=== PATIENT | female | born 1990 | race Two or more races ===

== ENCOUNTER → 2020-08-18 10:32 | Outpatient (BNVA) | payer OTHER, SELFPAY | PROVIDERS: PCP Internal Medicine; Referring Provider Internal Medicine; Visit Provider Nurse Practitioner | DX: Z76.89 Persons encountering health services in other specified circumstances (principal) ==

== ENCOUNTER 2020-08-26 12:01 | Outpatient (REF) | payer OTHER, SELFPAY ==
[2020-08-27 12:52] LABS: BV Int Neg Control Negative (Negative); BV Int Pos Control Positive (Positive)
== END 2020-08-26 12:02 | disposition home or self-care (01) ==
LOC: HO.LAB 12:01
PROVIDERS: Visit Provider Internal Medicine
DX: Z12.4 Encounter for screening for malignant neoplasm of cervix (principal); N89.8 Other specified noninflammatory disorders of vagina; Z23 Encounter for immunization
CPT/HCPCS: 87480; 87510; 87660; 88142

== ENCOUNTER → 2020-09-16 14:05 | Outpatient (BNVA) | payer OTHER, SELFPAY | PROVIDERS: PCP Internal Medicine; Visit Provider Nurse Practitioner ==

== ENCOUNTER → 2020-10-01 13:17 | Outpatient (BNVA) | payer OTHER, SELFPAY | PROVIDERS: PCP Internal Medicine; Visit Provider Nurse Practitioner ==

== ENCOUNTER → 2020-10-15 13:47 | Outpatient (BNVA) | payer OTHER, SELFPAY | PROVIDERS: Visit Provider Internal Medicine ==

== ENCOUNTER → 2020-10-26 10:46 | Outpatient (BNVA) | payer OTHER, SELFPAY | PROVIDERS: PCP Internal Medicine; Visit Provider Nurse Practitioner ==

== ENCOUNTER 2020-11-01 11:26 | Day surgery (SDC) | payer OTHER, SELFPAY ==
[2020-10-25 19:59] VITALS: BMI 24.3
--- NOTE | 2020-11-01 12:20 | P.CONAN_ITS ---
[facility] Active Problems Active Problems: All Active Problems (Updated 10/15/20 @ 16:50 by Nilda hendrix MD) Sandhya infection, disseminated (Acute) Candidiasis of mouth and esophagus (Acute) Bacterial vaginosis (Acute) Vaginal candidiasis (Acute) Eczema (Acute) Cervical cancer screening (Acute) Annual physical exam (Acute) Obesity (BMI 30-39.9) (Acute) GERD (gastroesophageal reflux disease) (Acute) Irritable bowel syndrome with both constipation and diarrhea (Acute) Peptic ulcer disease (Acute) H pylori ulcer (Acute) Past Medical History Medical History Asthma Degenerative disc disease GERD (gastroesophageal reflux disease) Irritable bowel syndrome Meningocele Migraine Obesity (BMI 30-39.9) Family History Family History Father Medical history unknown Mother Asthma Maternal Grandmother Ovarian cancer Paternal Uncle Lung cancer Other Diabetes Surgical History Surgical History History of esophagogastroduodenoscopy (EGD) History of nasal surgery History of placement of ear tubes Social History Social History Household Members: Friend(s) Alcohol intake: never Smoking Status: Never smoker Second Hand Smoke Exposure: No Use of substances other than those prescribed or required for medical reasons: No Advance Directives: No Advance Directives Information Provided: No Advance Directives on File: No Recently lost weight without trying: No Current occupational status: employed 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 Meds Allergies Allergy/AdvReac Type Severity Reaction Status Date / Time No Known Allergies Allergy Verified 10/26/20 10:48 Home Medications Medication Instructions Recorded Confirmed Last Taken Type famotidine 40 mg tablet 40 mg PO DAILY 08/18/20 11/01/20 11/01/20 00:00 History 40 mg hydroxyzine HCl 25 mg tablet 25 mg PO BEDTIME 08/18/20 10/25/20 Unknown History Exam Exam Date and Time: November 01, 2020 1220 Height,Weight and Vital Signs: Height 5 ft 8 in Weight 72.575 kg Airway Mallampati Class: I TM Dist: >3cm Neck ROM: Full Loose/Missing/Broken Teeth: No Heart: RRR Lungs: CTA Assessment and Plan Assessment Anesthesia Assessment: Anesthesia Plan Discussed and Chart Reviewed Final Anesthetic Review NPO: Yes ASA Class: II Final Preanesthetic Review: Meds/Allgs Chart Reviewed, Consent Obtained/Reviewed and Anes Risks/Benef Reviewed Patient Risk: Low Procedure Risk: Intermediate Anesthetic Plan Anesthetic Plan: MAC: Disposition: Standard PACU
[2020-11-01 12:40] LABS: UPreg QC Valid YES; Urine Pregnancy NEGATIVE (NEGATIVE)
[2020-11-01 12:50] VITALS: BP 115/74; PULSE 80; RESP 20; TEMP 36.1; O2SAT 100
--- NOTE | 2020-11-01 13:00 | PM.OP ---
Brief Operative Note Date of Service: 11/01/20 Pre-op diagnosis: Abdominal pain, GERD, follow-up of peptic ulcer disease Post-op diagnosis: other (GERD, Gastritis, multiple duodenal ulcers.) Procedure: FLEXIBLE TRANSORAL UPPER GASTROINTESTINAL ENDOSCOPY WITH BIOPSIES Consent: Indications for the procedure and potential complications of bleeding, perforation, reaction to medications and missed diagnosis were discussed with the patient and informed consent was obtained. Instrument: Olympus GIF H 190 mid size upper endoscope Monitoring: Vital signs and clinical assessment, continuous EKG monitoring, Pulse oximetry, Carbon Dioxide monitoring and blood pressure monitoring were done throughout the procedure. Procedure: The patient was placed in the left lateral decubitis position and pre-procedure medications were administered and a bite block was placed. The endoscope was inserted into the mouth and advanced under direct vision to the third part of duodenum. A careful inspection was made as the upper endoscope was withdrawn including a retroflexed examination of the proximal stomach; Findings and interventions are described below. Findings: Larynx: Normal Esophagus: Tortuous esophagus with increased tertiary contractions without stricture or ring - biopsies were obtained from proximal esophagus to check for EOE. GE junction at 36 cms.. No esophagitis or Tafoya's Stomach: Mild gastric erythema with a 2 mm healing pre-pyloric erosions. Biopsies were obtained from the gastric antrum. Grade 2 flap valve on retroflexed examination of the cardia. Duodenum: Three 5mm to 2 cms superficial ulcers in the bulb - biopsied. Normal descending duodenum - biopsies were obtained from 3rd part of duodenum to check for celiac sprue. Intervention: Biopsies as noted above Impression and Post Procedure Diagnosis: Endoscopy Findings: ESOPHAGUS: Tortuous esophagus with increased tertiary contractions without stricture or ring - biopsies were obtained from proximal esophagus to check for EOE. GE junction at 36 cms.. No esophagitis or Tafoya STOMACH: Mild gastric erythema with a 2 mm healing pre-pyloric erosions. Biopsies were obtained from the gastric antrum. DUODENUM: Three 5mm to 2 cms superficial ulcers in the bulb - biopsied. Normal descending duodenum Plan: Await pathology results Patient has an appointment on 11/08/20 in the GI Clinic with Royer Moss M.D.-. Above findings were reviewed with the patient and PUD and Gastritis handouts were given in the discharge area Surgeon: Royer Moss MD Anesthesia: MAC (Dr Hoover) Estimated blood loss (mL): 0 Pathology: other (A. SMALL BOWEL R/O CELIAC B. DUODENAL ULCER C. GASTRIC ANTRUM BXS D. PROXIMAL ESOPHAGUS R/O EOE) Condition: stable Disposition: PACU
--- NOTE | 2020-11-01 13:01 | MHC.SHP ---
Pre-Procedural Eval Section A The patient is an INPATIENT: No The History & Physical has been completed within 30 days and I have reviewed it.: Yes Section B Chief Complaint: reflux disease Allergies: Allergies Allergy/AdvReac Type Severity Reaction Status Date / Time No Known Allergies Allergy Verified 10/26/20 10:48 Review of Systems Sugical H&P ROS: Negative: Constitution, Cardiovascular and Respiratory and Yes, Specify: Gastrointestinal (GERD, abdominal pain) Exam Surgical H&P Exam: Normal: Heart, Normal: Lungs, Normal: Extremities and Normal: Abdomen Plan Diagnosis/Plan: Unchanged I have reviewed the history and physical and performed a pertinent physical examination on my patient. No changes have occurred unless specified.
--- NOTE | 2020-11-01 13:17 | P.OP_ITS ---
Operative Note Operative Note Date of Service: 11/01/20 Narrative: Pre-op diagnosis: Abdominal pain, GERD, follow-up of peptic ulcer disease Post-op diagnosis: other (GERD, Gastritis, multiple duodenal ulcers.) Procedure: FLEXIBLE TRANSORAL UPPER GASTROINTESTINAL ENDOSCOPY WITH BIOPSIES Consent: Indications for the procedure and potential complications of bleeding, perforation, reaction to medications and missed diagnosis were discussed with the patient and informed consent was obtained. Instrument: Olympus GIF H 190 mid size upper endoscope Monitoring: Vital signs and clinical assessment, continuous EKG monitoring, Pulse oximetry, Carbon Dioxide monitoring and blood pressure monitoring were done throughout the procedure. Procedure: The patient was placed in the left lateral decubitis position and pre-procedure medications were administered and a bite block was placed. The endoscope was inserted into the mouth and advanced under direct vision to the third part of duodenum. A careful inspection was made as the upper endoscope was withdrawn including a retroflexed examination of the proximal stomach; Findings and interventions are described below. Findings: Larynx: Normal Esophagus: Tortuous esophagus with increased tertiary contractions without stricture or ring - biopsies were obtained from proximal esophagus to check for EOE. GE junction at 36 cms.. No esophagitis or Tafoya's Stomach: Mild gastric erythema with a 2 mm healing pre-pyloric erosions. Biopsies were obtained from the gastric antrum. Grade 2 flap valve on retroflexed examination of the cardia. Duodenum: Three 5mm to 2 cms superficial ulcers in the bulb - biopsied. Normal descending duodenum - biopsies were obtained from 3rd part of duodenum to check for celiac sprue. Intervention: Biopsies as noted above Impression and Post Procedure Diagnosis: Endoscopy Findings: ESOPHAGUS: Tortuous esophagus with increased tertiary contractions without stricture or ring - biopsies were obtained from proximal esophagus to check for EOE. GE junction at 36 cms.. No esophagitis or Tafoya STOMACH: Mild gastric erythema with a 2 mm healing pre-pyloric erosions. Biopsies were obtained from the gastric antrum. DUODENUM: Three 5mm to 2 cms superficial ulcers in the bulb - biopsied. Normal descending duodenum Plan: Await pathology results Patient has an appointment on 11/08/20 in the GI Clinic with Royer Moss M.D.- . Above findings were reviewed with the patient and PUD and Gastritis handouts were given in the discharge area Surgeon: Royer Moss MD Anesthesia: MAC (Dr Anti) Estimated blood loss (mL): 0 Pathology: other (A. SMALL BOWEL R/O CELIAC B. DUODENAL ULCER C. GASTRIC ANTRUM BXS D. PROXIMAL ESOPHAGUS R/O EOE) Condition: stable Disposition: PACU
[2020-11-01 13:20] VITALS: BP 95/59; PULSE 90; RESP 18; TEMP 36.3; O2SAT 100
[2020-11-01 13:35] VITALS: BP 115/79; PULSE 84; RESP 18; O2SAT 100
[2020-11-01 13:50] VITALS: BP 119/83; PULSE 82; RESP 18; O2SAT 100
--- NOTE | 2020-11-01 14:22 | PC.NURSE ---
1400 MONITOR AND IVF DCD ASST OOB AMB TO BR STEADY W ASST VOID IN BR RETURN TO PACU 12 IV DC DRESSED SELF AT BS CALL MONTERROSO IN REACH PLAN TO AMB TO DC
== END 2020-11-01 14:44 | disposition home or self-care (01) ==
PROVIDERS: Anesthesiology; PCP Internal Medicine; Visit Provider Internal Medicine Gastroenterology
PROC: 0DJ08ZZ Inspection of Upper Intestinal Tract, Via Natural or Artificial Opening Endoscopic (ICD-10-PCS; CPT 43235; principal; 2020-11-01 12:40)
DX: K21.9 Gastro-esophageal reflux disease without esophagitis (principal); K29.50 Unspecified chronic gastritis without bleeding; K29.80 Duodenitis without bleeding; K58.2 Mixed irritable bowel syndrome; J45.909 Unspecified asthma, uncomplicated; Z79.899 Other long term (current) drug therapy
CPT/HCPCS: 43239; 81025; 88305; 88342

== ENCOUNTER → 2020-11-08 13:46 | Outpatient (BNVA) | payer OTHER, SELFPAY | PROVIDERS: PCP Internal Medicine; Visit Provider Internal Medicine Gastroenterology ==

== ENCOUNTER 2020-11-16 07:50 | Outpatient (REF) | payer OTHER, SELFPAY ==
[2020-11-16 08:42] LABS: MANUAL DIFF FLAG NO
[2020-11-16 08:48] LABS: Basophils Percent Auto 0.4 % (0-2); Eosinophils Absolute Auto 0.4 X10*3/uL (0.0-0.4); Eosinophils Percent Auto 4.2 % (0-4); Hematocrit 36.3 % (37-47); Hemoglobin 11.5 g/dl (12.0-16.0); Imm Gran Abs Auto 0.04 X10*3/uL (0.00-0.03); Imm Gran Pct Auto 0.5 % (0.0-0.4); Lymphocytes Absolute Auto 2.8 X10*3/uL (1.2-4.9); Mean Corpuscular HGB Conc 31.7 g/dl (31.0-35.0); Mean Corpuscular Hemoglobin 23.8 pg (27.0-33.0); Mean Platelet Volume 10.3 fL (9.4-12.3); Monocytes Absolute Auto 0.6 X10*3/uL (0.1-1.2); Monocytes Percent Auto 6.8 % (2-11); Neutrophils Absolute Auto 4.5 X10*3/uL (2.0-8.3); Neutrophils Percent Auto 54.1 % (45-73); Platelet Count 281 X10*3/uL (160-400); Red Blood Count 4.84 X10*6/uL (4.20-5.50); Red Cell Distribution Width 18.2 % (11.0-16.0); White Blood Count 8.3 X10*3/uL (4.8-10.8)
[2020-11-16 09:25] LABS: Alanine Aminotransferase < 6 U/L (0-31); Albumin Level 4.1 g/dL (3.5-5.0); Alkaline Phosphatase 64 U/L (39-117); Anion Gap 12 (12-20); Aspartate Amino Transferase 19 U/L (5-31); Bilirubin Total 0.7 mg/dL (0.0-1.0); Blood Urea Nitrogen 10 mg/dL (9-16); Calcium 9.1 mg/dL (8.4-10.2); Carbon Dioxide 28 mmol/L (22-29); Chloride 104 mmol/L (96-108); Estimated Glomerular Filt Rate > 60; Glucose Random 86 mg/dL (60-115); Potassium 4.5 mmol/L (3.3-5.1); Sodium 139 mmol/L (135-145); Total Protein 7.2 g/dL (6.5-8.0)
[2020-11-16 09:28] LABS: Erythrocyte Sedimentation Rate 5 MM/HR (0-20)
[2020-11-16 09:37] LABS: TSH reflex Free T4 1.63 uIU/mL (0.32-4.0)
[2020-11-16 10:10] LABS: Vitamin B12 386 pg/mL (200-900)
[2020-11-17 13:27] LABS: Transglutaminase Ab IgG 3 U/mL; Transglutaminase IgA 1 U/mL
[2020-11-17 14:16] LABS: Immunoglobulin A 152 mg/dL (47-310)
[2020-11-19 00:57] LABS: Gastrin 37 pg/mL (<=100)
== END 2020-11-16 07:51 | disposition home or self-care (01) ==
LOC: HO.LAB 07:50
PROVIDERS: PCP Internal Medicine; Visit Provider Internal Medicine Gastroenterology
DX: K58.2 Mixed irritable bowel syndrome (principal)
CPT/HCPCS: 36415; 80053; 81479; 82397; 82607; 82746; 82784; 82941; 83516; 83520; 84443; 85025; 85652; 86140; 88346; 88350

== ENCOUNTER 2020-11-22 12:21 | Outpatient (REF) | payer OTHER, SELFPAY ==
--- NOTE | ~2020-11-22 | CT_ITS ---
EXAMINATION: CT ABDOMEN AND PELVIS WITH CONTRAST CLINICAL INFORMATION: Generalized abdominal pain. COMPARISON: None TECHNIQUE: Multidetector volumetric images were obtained from the superior aspect of the liver through the pubic symphysis following administration 85 mL of Omnipaque 350 intravenous contrast. Sagittal and coronal reformatted images were obtained on the technologist's workstation. Oral contrast: No. This CT examination was performed using dose optimization techniques as appropriate, variously including the following: *Automated exposure control *Adjustment of mA and/or kV according to patient size (this includes techniques or standardized protocols for targeted exams where dose is matched to indication/reason for exam; i.e. extremities or head) *Use of iterative reconstruction technique DLP: 400 mGy-cm FINDINGS: LUNG BASES: The visualized lung bases are unremarkable. LIVER, GALLBLADDER, AND BILIARY TREE: The liver is normal in size, shape, and attenuation. No focal hepatic lesion or biliary ductal dilatation is present. The gallbladder is unremarkable with no evidence of radiopaque gallstones, gallbladder wall thickening, or obvious pericholecystic inflammatory changes. PANCREAS: Unremarkable. SPLEEN: Unremarkable. ADRENAL GLANDS: Unremarkable. KIDNEYS AND URETERS: The kidneys are normal in size, shape, and attenuation. No hydronephrosis, hydroureter, or calculi seen. No perinephric stranding. BLADDER: Unremarkable. GASTROINTESTINAL TRACT: There is scattered stool and gas seen throughout the colon without any significant distention. The small bowel loops are normal caliber. The appendix is normal caliber. ABDOMINAL WALL: No significant hernia is appreciated. LYMPH NODES: Normal. VASCULAR: Unremarkable. PELVIC VISCERA: The uterus is anteverted and appears unremarkable. There are bilateral small ovarian cysts and enhancing 1.7 cm corpus luteal cyst right ovary. There is minimal free fluid. OSSEOUS STRUCTURES: Unremarkable. CT/CT abdomen pelvis w con IMPRESSION: Mild constipation. No acute process seen. Bilateral simple ovarian cysts and a 1.7 cm corpus luteal cyst right ovary. Minimal free fluid in the pelvis.
[2020-11-22] MEDS: Barium Sulfate Oral (Berry) 450 ML ORAL.SUSP 900 ML PO (15:28)
== END 2020-11-22 12:22 | disposition home or self-care (01) ==
LOC: HO.CT 12:21
PROVIDERS: PCP Internal Medicine; Visit Provider Internal Medicine Gastroenterology
DX: R10.84 Generalized abdominal pain (principal); R14.0 Abdominal distension (gaseous)
CPT/HCPCS: 74177; Q9967

== ENCOUNTER → 2020-12-28 13:12 | Outpatient (BNVA) | payer OTHER, SELFPAY | PROVIDERS: PCP Internal Medicine; Visit Provider Internal Medicine Gastroenterology ==

== ENCOUNTER 2021-01-21 10:01 | Day surgery (SDC) | payer OTHER, SELFPAY ==
[2021-01-17 10:09] VITALS: BMI 24.3
--- NOTE | 2021-01-19 13:06 | P.CONAN_ITS ---
Documented by User: Heavenly Cobos 01/19/21 13:07 HPI - Anesthesia Eval Consult details Narrative: 30yo F for Upper Endoscopy and Colonoscopy s/p EGD 10/2020 with MAC (repeat for ulcer f/u) PMF Active Problems Active Problems: All Active Problems (Updated 12/28/20 @ 18:45 by Royer Moss MD) H pylori ulcer (Acute) Peptic ulcer disease (Acute) Eczema (Acute) Vaginal candidiasis (Acute) Bacterial vaginosis (Acute) Candidiasis of mouth and esophagus (Acute) Sandhya infection, disseminated (Acute) Irritable bowel syndrome with diarrhea (Acute) Tongue swelling (Acute) Obesity (BMI 30-39.9) (Acute) GERD (gastroesophageal reflux disease) (Acute) Past Medical History Medical History (Updated 12/28/20 @ 18:45 by Royer Moss MD) Asthma Degenerative disc disease GERD (gastroesophageal reflux disease) Irritable bowel syndrome Meningocele Migraine Obesity (BMI 30-39.9) Family History Family History Father Medical history unknown Mother Asthma Maternal Grandmother Ovarian cancer Paternal Uncle Lung cancer Other Diabetes Surgical History Surgical History (Updated 01/17/21 @ 10:02 by Maia Lyon) History of esophagogastroduodenoscopy (EGD) History of nasal surgery History of placement of ear tubes Social History Social History Household Members: Friend(s) Alcohol intake: never Second Hand Smoke Exposure: No Are you DNR?: No Advance Directives Information Provided: No Current occupational status: employed 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 Allergies Allergy/AdvReac Type Severity Reaction Status Date / Time No Known Allergies Allergy Verified 12/28/20 13:13 Home Medications Medication Instructions Recorded Confirmed Last Taken Type hydroxyzine HCl 25 mg tablet 25 mg PO BEDTIME 08/18/20 01/17/21 Unknown History Exam Exam Date and Time: January 19, 2021 1306 Height,Weight and Vital Signs: Height 5 ft 8 in Weight 72.575 kg Pertinent Lab Results Pertinent Lab Results: Laboratory Tests 11/16/20 11/16/20 08:07 08:07 WBC 8.3 Hgb 11.5 L Hct 36.3 L Plt Count 281 Sodium 139 Potassium 4.5 Chloride 104 Carbon Dioxide 28 BUN 10 Creatinine 0.80 Assessment and Plan Assessment Anesthesia Assessment: Chart Reviewed Documented by User: Lynette Garvin 01/21/21 11:22 PMFSH Past Medical History Medical History (Updated 12/28/20 @ 18:45 by Royer Moss MD) Asthma Degenerative disc disease GERD (gastroesophageal reflux disease) Irritable bowel syndrome Meningocele Migraine Obesity (BMI 30-39.9) Family History Family History Father Medical history unknown Mother Asthma Maternal Grandmother Ovarian cancer Paternal Uncle Lung cancer Other Diabetes Surgical History Surgical History (Updated 01/17/21 @ 10:02 by Maia Lyon) History of esophagogastroduodenoscopy (EGD) History of nasal surgery History of placement of ear tubes Social History Social History Household Members: Friend(s) Alcohol intake: never Second Hand Smoke Exposure: No Are you DNR?: No Advance Directives Information Provided: No Current occupational status: employed 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 Allergies Allergy/AdvReac Type Severity Reaction Status Date / Time No Known Allergies Allergy Verified 12/28/20 13:13 Home Medications Medication Instructions Recorded Confirmed Last Taken Type hydroxyzine HCl 25 mg tablet 25 mg PO BEDTIME 08/18/20 01/17/21 Unknown History Exam Airway Mallampati Class: II TM Dist: >3cm Neck ROM: Full Heart: RRR Lungs: CTA Assessment and Plan Assessment Anesthesia Assessment: Anesthesia Plan Discussed and Chart Reviewed Final Anesthetic Review NPO: Yes ASA Class: II Final Preanesthetic Review: No Changes in Pt Med Stat and Consent Obtained/Reviewed Patient Risk: Intermediate Procedure Risk: Intermediate Anesthetic Plan Anesthetic Plan: MAC: Disposition: Standard PACU
[2021-01-21 10:41] VITALS: BP 134/80; PULSE 85; RESP 18; TEMP 36.6; O2SAT 100
[2021-01-21] MEDS: Lactated Ringers 1,000 ML 100 ML IVCONT (10:54)
[2021-01-21 10:59] LABS: UPreg QC Valid YES; Urine Pregnancy NEGATIVE (NEGATIVE)
--- NOTE | 2021-01-21 11:18 | W.PM.OPN ---
Operative Note Operative Note Date of Service: 01/21/21 Narrative: Pre-op diagnosis: GERD, abdominal pain, FU of DU and bloating, nauseas, GERD, and diarrhea. Post-op diagnosis: other (antral nodule, normal colonoscopy) Procedure: FLEXIBLE TRANSORAL UPPER GASTROINTESTINAL ENDOSCOPY WITH BIOPSIES AND COLONOSCOPY TILL CECUM WITH BIOPSIES UPPER ENDOSCOPY Consent: Indications for the procedure and potential complications of bleeding, perforation, reaction to medications and missed diagnosis were discussed with the patient and informed consent was obtained. Instrument: Olympus GIF H 190 mid size upper endoscope Monitoring: Vital signs and clinical assessment, continuous EKG monitoring, Pulse oximetry, Carbon Dioxide monitoring and blood pressure monitoring were done throughout the procedure. Procedure: The patient was placed in the left lateral decubitis position and pre-procedure medications were administered and a bite block was placed. The endoscope was inserted into the mouth and advanced under direct vision to the third part of duodenum. A careful inspection was made as the upper endoscope was withdrawn including a retroflexed examination of the proximal stomach; Findings and interventions are described below. Findings: Larynx: Normal Esophagus: GE junction at 35 cms.. No esophagitis or Tafoya's. Stomach: Mild gastric erythema with a 5--6 mm benign appearing antral nodule - biopsied. Grade 2 flap valve on retroflexed examination of the cardia. Duodenum: Normal bulb and descending duodenum Intervention: Biopsies as noted above COLONOSCOPY PROCEDURE NOTE Consent: Indications for the procedure and potential complications of bleeding, perforation, reaction to medications and missed diagnosis were discussed with the patient and informed consent was obtained. Instrument: Olympus PCF H 190 L variable stiffness pediatric colonoscope Monitoring: Vital signs and clinical assessment, intermittent blood pressure monitoring, continuous EKG monitoring, Pulse oximetry and Carbon Dioxide monitoring were done throughout the procedure. Colon withdrawl time was 16 minutes. Procedure: The patient was placed in the left lateral decubitis position and pre-procedure medications were administered. After a digital rectal examination of the ano-rectum, the video colonoscope was inserted into the rectum and advanced through the colon to the cecum. The colonoscope was slowly withdrawn in a retrograde panoramic fashion and the colon mucosa was carefully examined including a retroflexed view of the rectum. Findings and interventions are described below. Procedure Difficulty: : Without difficulty Findings: Terminal Ileum: Distal 5 cm was examined and scattered 2-4 mm benign appearing nodules noted - biopsied. Cecum: Normal Ascending Colon: Normal Transverse Colon: Normal Descending Colon: Normal Sigmoid Colon: Normal Rectum: Normal Ano-rectum: Normal Colon preparation: Excellent Impression and Post Procedure Diagnosis: Endoscopy Findings: STOMACH: Mild gastric erythema with a 5--6 mm benign appearing antral nodule - biopsied. Colonoscopy Findings: Normal Colonoscopy Benign appearing nodules in the TI - likely normal lymphoid tissue Random biopsies were obtained from the TI, right and left colon Plan: Await pathology results Patient has an appointment on 02/21/21 in the GI Clinic with Royer Moss M.D.. Repeat Colonoscopy interval based on path results - 15 years if biopsies are normal. Above findings were reviewed with the patient. Surgeon: Royer Moss MD Anesthesia: MAC (Dr Castro) Was an Cad Detailer used for this Procedure?: Yes Cad Detailer: Reji Judd Estimated blood loss (mL): 0 Pathology: other ( A- ANTRAL NODULE BX B- TI BXS R/O CROHN'S C- RANDOM RIGHT COLON BXS R/O MICROSCOPIC COLITIS D- RANDOM LEFT COLON BXS R/ O MICROSCOPIC COLITIS) Condition: stable Disposition: PACU
--- NOTE | 2021-01-21 11:18 | MHC.SHP ---
Pre-Procedural Eval Section A The patient is an INPATIENT: No Changes since office visit: Yes Patient answered all questions; No Cold of Flu in the past 2 weeks, No New Medical Problems and No Changes in Medication The History & Physical has been completed within 30 days and I have reviewed it.: Yes Section B Chief Complaint: GERD, IBS with Diarrhea Allergies: Allergies Allergy/AdvReac Type Severity Reaction Status Date / Time No Known Allergies Allergy Verified 12/28/20 13:13 Exam Surgical H&P Exam: Normal: Heart, Normal: Lungs, Normal: Extremities and Normal: Abdomen Plan Diagnosis/Plan: Unchanged I have reviewed the history and physical and performed a pertinent physical examination on my patient. No changes have occurred unless specified.
[2021-01-21 12:11] VITALS: BP 103/69; PULSE 75; RESP 16; TEMP 36.1; O2SAT 98
[2021-01-21 12:26] VITALS: BP 119/78; PULSE 75; RESP 17; O2SAT 100
[2021-01-21 12:44] VITALS: BP 121/83; PULSE 72; RESP 17; TEMP 36.3; O2SAT 99
== END 2021-01-21 12:57 | disposition home or self-care (01) ==
PROVIDERS: Nurse Practitioner; PCP Internal Medicine; Visit Provider Internal Medicine Gastroenterology
PROC: (CPT 45380; principal; 2021-01-21 11:00)
DX: K58.0 Irritable bowel syndrome with diarrhea (principal); K21.9 Gastro-esophageal reflux disease without esophagitis; K31.7 Polyp of stomach and duodenum; J45.909 Unspecified asthma, uncomplicated; Z79.899 Other long term (current) drug therapy
CPT/HCPCS: 45380; 43239; 81025; 88305; 88342; J2765

== ENCOUNTER → 2021-02-07 10:11 | Outpatient (BNVA) | payer OTHER, SELFPAY | PROVIDERS: Visit Provider Internal Medicine Gastroenterology ==

== ENCOUNTER 2021-02-16 07:28 | Outpatient (REF) | payer OTHER, SELFPAY ==
[2021-02-18 22:46] LABS: Anti Nuclear Antibody Pattern Nuclear, Homogeneous; Anti Nuclear Antibody Screen POSITIVE (NEGATIVE); Anti Nuclear Antibody Titer 1:40 titer
[2021-02-22 18:36] LABS: C1Q Complement Component 6.6 mg/dL (5.0-8.6)
== END 2021-02-16 07:29 | disposition home or self-care (01) ==
LOC: HO.LAB 07:28
PROVIDERS: PCP Internal Medicine; Visit Provider Internal Medicine Gastroenterology
DX: R22.0 Localized swelling, mass and lump, head (principal)
CPT/HCPCS: 36415; 86038; 86039; 86160

== ENCOUNTER → 2021-03-08 11:02 | Outpatient (BNVA) | payer OTHER, SELFPAY | PROVIDERS: Visit Provider Advanced Practice Midwife ==

== ENCOUNTER → 2021-04-21 07:42 | Outpatient (BNVA) | payer OTHER, SELFPAY | PROVIDERS: PCP Internal Medicine; Visit Provider Advanced Practice Midwife | DX: Z30.017 Encounter for initial prescription of implantable subdermal contraceptive (principal) | CPT/HCPCS: 11981; J7307 ==

== ENCOUNTER → 2021-06-01 07:59 | Outpatient (BNVA) | payer OTHER, SELFPAY | PROVIDERS: Visit Provider Advanced Practice Midwife ==

== ENCOUNTER → 2021-06-20 07:27 | Outpatient (REF) | payer OTHER, SELFPAY ==
[2021-06-20 07:36] LABS: MANUAL DIFF FLAG NO
--- NOTE | 2021-06-20 07:50 | ECG_ITS ---
Test Reason : fatigue Blood Pressure : / mmHG Vent. Rate : 085 BPM Atrial Rate : 085 BPM P-R Int : 144 ms QRS Dur : 080 ms QT Int : 378 ms P-R-T Axes : 021 029 026 degrees QTc Int : 449 ms Normal sinus rhythm RSR' or QR pattern in V1 suggests right ventricular conduction delay Otherwise normal ECG When compared with ECG of 19-NOV-2017 12:06, No significant change was found Referred By: Evonne Dailey Electronically Signed By:DOMINGO FARAH MD
[2021-06-20 08:01] LABS: Basophils Percent Auto 0.5 % (0-2); Eosinophils Absolute Auto 0.2 X10*3/uL (0.0-0.4); Eosinophils Percent Auto 2.4 % (0-4); Hematocrit 37.7 % (37-47); Hemoglobin 12.1 g/dl (12.0-16.0); Imm Gran Abs Auto 0.06 X10*3/uL (0.00-0.03); Imm Gran Pct Auto 0.7 % (0.0-0.4); Lymphocytes Absolute Auto 3.5 X10*3/uL (1.2-4.9); Lymphocytes Percent Auto 40.5 % (20-40); Mean Corpuscular HGB Conc 32.1 g/dl (31.0-35.0); Mean Corpuscular Volume 74.8 fL (80-98); Mean Platelet Volume 10.6 fL (9.4-12.3); Monocytes Absolute Auto 0.7 X10*3/uL (0.1-1.2); Monocytes Percent Auto 7.7 % (2-11); Neutrophils Absolute Auto 4.2 X10*3/uL (2.0-8.3); Neutrophils Percent Auto 48.2 % (45-73); Platelet Count 298 X10*3/uL (160-400); Red Blood Count 5.04 X10*6/uL (4.20-5.50); White Blood Count 8.7 X10*3/uL (4.8-10.8)
[2021-06-20 08:28] LABS: Alanine Aminotransferase 9 U/L (0-31); Albumin Level 4.2 g/dL (3.5-5.0); Alkaline Phosphatase 72 U/L (39-117); Anion Gap 11 (12-20); Aspartate Amino Transferase 21 U/L (5-31); Bilirubin Total 0.3 mg/dL (0.0-1.0); Blood Urea Nitrogen 7 mg/dL (9-16); Calcium 9.5 mg/dL (8.4-10.2); Carbon Dioxide 26 mmol/L (22-29); Chloride 105 mmol/L (96-108); Estimated Glomerular Filt Rate > 60; Glucose Fasting 96 mg/dL (60-99); Iron 44 mcg/dL (30-160); Percent Iron Saturation 16 % (15-50); Potassium 4.3 mmol/L (3.3-5.1); Sodium 138 mmol/L (135-145); Total Iron Binding Capacity 277 mcg/dL (228-428); Total Protein 7.5 g/dL (6.5-8.0); Unsaturated Iron Binding 233 ug/dL
[2021-06-20 08:50] LABS: TSH reflex Free T4 1.18 uIU/mL (0.32-4.0); Vitamin D 25-OH Total 27.3 ng/mL (>30)
[2021-06-20 09:52] LABS: Folate 18.6 ng/mL (> or = 4.0); Vitamin B12 435 pg/mL (200-900)
== END ==
LOC: HO.CARD 07:27
PROVIDERS: PCP Internal Medicine; Visit Provider Nurse Practitioner Family
DX: D64.9 Anemia, unspecified (principal); E66.9 Obesity, unspecified; R00.2 Palpitations; R11.0 Nausea; R53.82 Chronic fatigue, unspecified; E78.00 Pure hypercholesterolemia, unspecified; I10 Essential (primary) hypertension
CPT/HCPCS: 36415; 80053; 82306; 82607; 82746; 83540; 84443; 85025; 93005

== ENCOUNTER → 2021-08-04 11:50 | Outpatient (BNVA) | payer BC, SELFPAY | PROVIDERS: PCP Internal Medicine; Visit Provider Advanced Practice Midwife ==

== ENCOUNTER → 2021-08-25 07:44 | Outpatient (REF) | payer BC, SELFPAY ==
--- NOTE | 2021-08-25 07:48 | CA_ITS ---
Acquisition Time: 2021-08-25 07:47:53 Total Exercise Time: 00:09:41 Test Indications: CP Medications: SEE CHART Protocol: ELIGIO Max HR: 184 BPM 96% of Pred: 191 BPM Max BP: 164/060 mmHG Max Work Load: 11.4 METS Exercise stress test with exercise 9 min 41 sec of Eligio protocol without anginal symptoms, without arrythmia, with normal chronotropic and normotensive response to exercise, without EKG changes meeting criteria for ischemia. Referred By: Alice Woodard Overread By: SIMBA STRAUSS
== END ==
LOC: HO.CARD 07:44
PROVIDERS: Visit Provider Nurse Practitioner Family
DX: R07.9 Chest pain, unspecified (principal)
CPT/HCPCS: 93017

== ENCOUNTER → 2021-09-07 11:56 | Outpatient (REF) | payer BC, SELFPAY ==
--- NOTE | 2021-09-07 11:59 | ECG_ITS ---
Hook-up date: 2021-09-07 12:10:00 Duration: 25:49:00 Test Indications: Palpitations Medications: 147442 QRS complexes * Ventricular ectopics which represent % of total QRS comp. 11 Supraventricular ectopics which represent <1 % of total QRS comp. * Paced QRS complexs which represent % of total QRS comp. VENTRICULAR ECTOPY * Isolated * Bigeminal Cycles * Couplets * Runs * Beats in Runs * Beats LONGEST at * BPM at :: -- * Beats FASTEST at * BPM at :: -- SUPRAVENTRICULAR ECTOPY 6 Isolated 1 Couplets 1 Runs 3 Beats in Runs 3 Beats LONGEST at 107 BPM at 21:31:25 2021-09-07 3 Beats FASTEST at 107 BPM at 21:31:25 2021-09-07 HEART RATES 66 MIN at 02:29:10 2021-09-08 92 AVG 158 MAX at 17:01:07 2021-09-07 LONGEST RR 0.9200 secs at 02:29:10 2021-09-08 S-T LEVELS Channel 1 - 128 mm at 12:10:00 2021-09-07 - 128 mm at 12:10:00 2021-09-07 Channel 2 - 128 mm at 12:10:00 2021-09-07 - 128 mm at 12:10:00 2021-09-07 Channel 3 - 128 mm at 03:12:91 -- - 128 mm at 03:12:91 Basic rhythm Normal sinus rhythm No long pause or profound bradycardia Frequent Sinus tachycardia , 31% of time HR > 100 bpm Rare Premature atrial complexes Patient reported symptoms correlates [facility] NSR Referred By: Tian Auguste Overread By: MATHEUS WATSON MD
== END ==
LOC: HO.CARD 11:56
PROVIDERS: PCP Internal Medicine; Visit Provider Internal Medicine
DX: R00.2 Palpitations (principal)
CPT/HCPCS: 93225; 93226

== ENCOUNTER 2021-09-08 10:41 | Outpatient (REF) | payer BC, SELFPAY ==
[2021-09-08 17:03] LABS: CT PCR NOT DETECTED (Not Detect.)
[2021-09-08 17:04] LABS: NG PCR NOT DETECTED (Not Detect.)
[2021-09-09 08:52] LABS: BV Int Neg Control Negative (Negative); BV Int Pos Control Positive (Positive)
== END 2021-09-08 10:42 | disposition home or self-care (01) ==
LOC: HO.LAB 10:41
PROVIDERS: PCP Internal Medicine; Visit Provider Advanced Practice Midwife
DX: N92.1 Excessive and frequent menstruation with irregular cycle (principal); Z30.46 Encounter for surveillance of implantable subdermal contraceptive
CPT/HCPCS: 11982; 87480; 87491; 87510; 87591; 87660

== ENCOUNTER → 2021-10-25 11:08 | Outpatient (BNVA) | payer BC, SELFPAY | PROVIDERS: PCP Internal Medicine; Referring Provider Internal Medicine; Visit Provider Internal Medicine ==

== ENCOUNTER → 2021-12-05 13:45 | Outpatient (REF) | payer BC, SELFPAY ==
--- NOTE | 2021-12-05 14:00 | CA_ITS ---
Transthoracic Echocardiogram Patient (Last, First, Middle): Maritza Amador, Gender: Female Date of : 1990 Age: 31 Procedure Date: 12/05/2021 Procedure Type: Transthoracic Echocardiogram Location: OP Height: 154.94 cm Weight: 81.65 kg BSA: 1.81 m2 Heart Rate: bpm BP: 127 / 80 mmHg Exhibit Cleaner: YR/TO Referring MD: Manpreet Duong MD Symptoms: R06.02 - Shortness of breath Study Quality: Fair ECG Rhythm: Sinus Conclusions: - The left ventricular systolic function is normal. The visually estimated ejection fraction is between 65-70%. - No obvious valvular pathology seen on this study. Findings Left Ventricle Normal left ventricular cavity size. There is normal left ventricular wall thickness. The left ventricular systolic function is normal. The visually estimated ejection fraction is between 65-70%. There is no evidence of regional wall motion abnormalities. Diastolic function is normal for age. Right Ventricle Normal right ventricular cavity size and systolic function. Atria Both atria are normal in size. Aortic Valve There is a normal trileaflet aortic valve. There is no aortic valve stenosis. There is no aortic valve regurgitation. Mitral Valve The mitral valve appears normal. There is no mitral valve regurgitation. There is no mitral valve stenosis. Pulmonic Valve The pulmonic valve was not well visualized. Tricuspid Valve There is trace tricuspid valve regurgitation. The pulmonary artery systolic pressure is normal. Great Vessels The asc aorta and aortic arch are normal in size. Venous The inferior vena cava is normal in size and collapses greater than 50% with inspiration. Pericardium/Pleural There is no evidence of pericardial effusion. Prior Study Comparison No prior study available for comparison. Recommendations, Care & Conclusions No obvious valvular pathology seen on this study. Measurements 2D Linear Measurements IVSd: 1.02 0.6-0.9/0.6-1.0 cm LVIDd: 3.76 3.9-5.3/4.2-5.9 cm LVIDd Index: 2.08 2.4-3.2/2.2-3.1 cm/m2 LVIDs: 2.47 2.0-3.6 cm LVPWd: 0.96 0.7-1.1 cm LA Diam: 3.00 2.7-3.8/3.0-4.0 cm LAIDs Index: 1.66 1.5-2.3 cm/m2 LV Mass: 141.40 67-162/88-224 g LV Mass Index: 78.12 43-95/49-115 g/m2 LVOT Diam: 2.10 3.0+(-)1.3 cm 2D Systolic Function EF 4C: 61.20 >55% EF 2C: 55.40 >55% EF BiP: 58.90 >55% Mitral Valve E'Lateral: 13.80 E'Medial: 9.14 Aortic Valve AoV Pk Chris: 1.25 AoV Mn Chris: 0.90 AoV VTI: 0.23 AoV Pk Grad: 6.00 Aov Mn Grad: 4.00 LYUBOV Cont.VTI: 3.43 LVOT LVOT Pk Chris: 1.23 LVOT Mn Chris: 0.79 LVOT VTI: 0.23 LVOT Pk Grad: 6.00 LVOT Mn Grad: 3.00 LVOT Diam: 2.10 LVOT Area: 3.46 Diastolic Function E'Medial: 9.14 E' Laterial: 13.80 Right Ventricle TAPSE (mm): 20.00 TVS' Chris: 9.90 Tricuspid Valve TR Pk Chris: 2.00 TR Pk Grad: 16.00 RA Press: 3.00 RVSP: 19.00 Great Vessels Aorta Sinus of Valsalva: 2.83 2.0-3.[address] Ridge: 2.42 1.7-3.4 cm Ao Asc: 2.80 2.1-3.4 cm Ao Arch: 2.60 Updated in Other Vendor System with Status of Final Manpreet Duong MD electronically signed on 12/05/2021 4:16:39 PM with status of Final
--- NOTE | 2021-12-05 17:39 | PFT_ITS ---
FLOWS: FEV1 111% of predicted at 3.24 L. FVC 102% of predicted at 3.49 L. FEV1 to FVC ratio of 0.93. No bronchodilator response. LUNG VOLUMES: Total lung capacity 98% of predicted at 4.53 L. Residual volume 89% of predicted at 1.11 L. Slow vital capacity 101% of predicted at 3.42 L. Expiratory reserve volume 41% of predicted at 0.52 L. Diffusion capacity is normal. IMPRESSION: No obstructive or restrictive ventilatory defect. No bronchodilator response. Decreased expiratory reserve volume suggests extrathoracic restriction, likely secondary to abdominal obesity. Dinesh Paniagua MD AP/MODL / [id number]
== END ==
LOC: HO.CARD 13:45
PROVIDERS: PCP Internal Medicine; Visit Provider Internal Medicine
DX: R06.02 Shortness of breath (principal)
CPT/HCPCS: 93306; 94060; 94727; 94729

== ENCOUNTER 2022-02-21 08:30 | Outpatient (REF) | payer BC, SELFPAY ==
[2022-02-21 08:56] LABS: MANUAL DIFF FLAG NO
[2022-02-21 10:04] LABS: Basophils Percent Auto 0.5 % (0-2); Eosinophils Absolute Auto 0.1 X10*3/uL (0.0-0.4); Eosinophils Percent Auto 1.5 % (0-4); Hematocrit 36.4 % (37.0-47.0); Hemoglobin 11.5 g/dl (12.0-16.0); Imm Gran Abs Auto 0.06 X10*3/uL (0.00-0.03); Imm Gran Pct Auto 0.7 % (0.0-0.4); Lymphocytes Percent Auto 33.6 % (20-40); Mean Corpuscular HGB Conc 31.6 g/dl (31.0-35.0); Mean Corpuscular Hemoglobin 23.2 pg (27.0-33.0); Mean Corpuscular Volume 73.5 fL (80.0-98.0); Mean Platelet Volume 11.1 fL (9.4-12.3); Monocytes Absolute Auto 0.6 X10*3/uL (0.1-1.2); Monocytes Percent Auto 7.2 % (2-11); Neutrophils Percent Auto 56.5 % (45-73); Platelet Count 288 X10*3/uL (160-400); Red Blood Count 4.95 X10*6/uL (4.20-5.50); Red Cell Distribution Width 18.2 % (11.0-16.0); White Blood Count 8.8 X10*3/uL (4.8-10.8)
[2022-02-21 10:42] LABS: Alanine Aminotransferase 11 U/L (0-31); Albumin Level 4.1 g/dL (3.5-5.0); Alkaline Phosphatase 80 U/L (39-117); Anion Gap 10 (12-20); Aspartate Amino Transferase 21 U/L (5-31); Bilirubin Total 0.3 mg/dL (0.0-1.0); Blood Urea Nitrogen 10 mg/dL (9-16); Calcium 9.2 mg/dL (8.4-10.2); Carbon Dioxide 25 mmol/L (22-29); Chloride 105 mmol/L (96-108); Estimated Glomerular Filt Rate > 60; Glucose Random 110 mg/dL (60-115); Lipase 28 U/L (8-78); Potassium 4.3 mmol/L (3.3-5.1); Sodium 136 mmol/L (135-145); Total Protein 7.6 g/dL (6.5-8.0)
[2022-02-21 10:43] LABS: Erythrocyte Sedimentation Rate 11 MM/HR (0-20)
== END 2022-02-21 08:31 | disposition home or self-care (01) ==
LOC: HO.LAB 08:30
PROVIDERS: PCP Internal Medicine; Visit Provider Internal Medicine Gastroenterology
DX: R10.10 Upper abdominal pain, unspecified (principal); R68.81 Early satiety; R11.2 Nausea with vomiting, unspecified
CPT/HCPCS: 36415; 80053; 83690; 85025; 85652; 86140

== ENCOUNTER 2022-02-21 10:26 | Outpatient (REF) | payer BC, SELFPAY ==
[2022-02-22 16:03] LABS: H Pylori Breath Test Negative (Negative)
[2022-02-26 18:17] LABS: Calprotectin, Fecal 47 mcg/g
== END 2022-02-21 10:27 | disposition home or self-care (01) ==
LOC: HO.LNP 10:26
PROVIDERS: Visit Provider Internal Medicine Gastroenterology
DX: R10.10 Upper abdominal pain, unspecified (principal); R11.2 Nausea with vomiting, unspecified; R68.81 Early satiety; Z11.0 Encounter for screening for intestinal infectious diseases
CPT/HCPCS: 83013; 83993

== ENCOUNTER 2022-02-24 08:28 | Outpatient (REF) | payer BC, SELFPAY ==
--- NOTE | ~2022-02-24 | US_ITS ---
EXAMINATION: US ABDOMEN COMPLETE CLINICAL INFORMATION: Upper abdominal pain. COMPARISON: None TECHNIQUE: Real-time imaging of the abdominal viscera. FINDINGS: PANCREAS: The head and body the pancreas are normal. The tail is not well visualized due to bowel gas. ABDOMINAL AORTA: The proximal, mid, and distal segments are normal in caliber. INFERIOR VENA CAVA: Visualized portions are normal. LIVER: The liver is normal in size. The liver contour is normal. Liver echotexture is increased probably representing fatty infiltration. There are hypoechoic areas adjacent to the gallbladder, characteristic location of focal fatty sparing.. No focal hepatic lesion. There is no intrahepatic biliary duct dilatation seen. GALLBLADDER: Normal. The gallbladder is physiologically distended without evidence of stones, sludge, polyps, wall thickening or pericholecystic fluid. COMMON BILE DUCT: Normal in caliber measuring 0.3 cm in diameter. RIGHT KIDNEY: Normal. No hydronephrosis. No renal calculi or focal parenchymal lesions. The kidney measures 9.8 cm in maximum dimension. LEFT KIDNEY: Normal. No hydronephrosis. No renal calculi or focal parenchymal lesions. The kidney measures 10.6 cm in maximum dimension. SPLEEN: Normal. The spleen measures 10 cm in maximum dimension. FREE FLUID: None. US/US abdomen complete IMPRESSION: Fatty liver. Limited visualization of the tail the pancreas.
== END 2022-02-24 08:29 | disposition home or self-care (01) ==
LOC: HO.US 08:28
PROVIDERS: Visit Provider Internal Medicine Gastroenterology
DX: R10.10 Upper abdominal pain, unspecified (principal)
CPT/HCPCS: 76700

== ENCOUNTER 2022-03-23 14:29 | Outpatient (REF) | payer BC, SELFPAY ==
--- NOTE | 2022-03-23 15:41 | MHC.AU.ANO ---
Adult Audiological Evaluation: Date of Visit: 03/23/22 Reason for Appointment: Reports pressure below ears and pressure at times leading to a whoosing (pulselike but not quite) followed by dizziness when she looks up. Can no longer go on amusement rides etc. Happening more frequently. Bilateral tinnitus for a few years. Seen in the ED @ 6 years ago due to episode where she awoke with pain, pressure and spinning. Had work up that included MRI, CT, Spinal, etc. with no specific outcome determined. Lasted for several months. History of PE tubes as an infant (notable scarring on left TM). Does patient feel they have a hearing loss?: No Has hearing been tested previously?: No Hearing Handicap Inventory: HHIE SCORE: 0 Based on HHIE score, patient has: No perceived hearing handicap Medical History: Medical History: Headache, High Blood Pressure, Gerd, Plaque psoriasis, asthma, tachycardia, anemia, Allergies: Seasonal Otoscopy: Unremarkable bilaterally Tympanometry:performed due to: History of middle ear dysfunction Right Ear: Hypercompliant Middle Ear System (Type Ad); Left Ear: Normal Middle Ear System (Type A) Otoacoustic Emissions: Frequency Range Used: 1.5-12 kHz Right Ear: Results: Present Emissions; Analysis: Present emissions suggest normal cochlear function Left Ear: Results: Present Emissions; Analysis: Present emissions suggest normal cochlear function Hearing Evaluation: Transducer(s) Used: Insert Earphones, Method: Conventional Audiometry, Stimuli Used: Pure Tones Hearing within normal limits bilaterally with excellent word recognition at soft communication levels. Interpretation of Results: Hearing within normal limits. No significant asymmetry noted. Recommendations: Referral to Ear, Nose, and Throat to address middle ear dysfunction. Referral for vestibular testing (VNG or ENG) Consider referral to PT to treat possible positional vertigo. Diagnosis: Primary Diagnosis: H93.293 Abnormal Auditory Perception Secondary Diagnosis: Z01.10 Hearing or vestibular exam without abnormal findings Services Performed: Pure Tone- Air (CPT 40176), Speech Audiometry Threshold, with Speech Recognition (CPT 85024), Diagnostic Otoacoustic Emissions (CPT 65336, 26+TC) Tympanometry (CPT 15524) Signature: Provider: Martha Odom, FAAA
== END 2022-03-23 14:30 | disposition home or self-care (01) ==
LOC: HO.SH 14:29
PROVIDERS: Visit Provider Internal Medicine
DX: Z01.118 Encounter for examination of ears and hearing with other abnormal findings (principal); H93.293 Other abnormal auditory perceptions, bilateral
CPT/HCPCS: 92552; 92556; 92567; 92588

== ENCOUNTER 2022-03-24 12:14 | Outpatient (REF) | payer BC, SELFPAY ==
[2022-03-24 13:30] LABS: Iron 82 mcg/dL (30-160); Percent Iron Saturation 29 % (15-50); Total Iron Binding Capacity 278 mcg/dL (228-428); Unsaturated Iron Binding 196 ug/dL
[2022-03-24 13:52] LABS: TSH reflex Free T4 1.15 uIU/mL (0.32-4.0); Vitamin D 25-OH Total 26.8 ng/mL (>30)
== END 2022-03-24 12:15 | disposition home or self-care (01) ==
LOC: HO.LAB 12:14
PROVIDERS: PCP Internal Medicine; Visit Provider Nurse Practitioner Family
DX: R42 Dizziness and giddiness (principal)
CPT/HCPCS: 36415; 82306; 83540; 84443

== ENCOUNTER 2022-04-14 10:30 | Outpatient (RCR) | payer BC, SELFPAY ==
[2022-04-11 07:08] VITALS: BP 135/85; PULSE 86
== END 2022-05-06 14:51 | disposition home or self-care (01) ==
LOC: HO.PT 10:30
PROVIDERS: PCP Internal Medicine; Visit Provider Nurse Practitioner Family
DX: R42 Dizziness and giddiness (principal)
CPT/HCPCS: 95992; 97112; 97161

== ENCOUNTER 2022-05-16 18:36 | Outpatient (REF) | payer BC, SELFPAY ==
--- NOTE | ~2022-05-16 | MR_ITS ---
EXAMINATION: MRI OF THE BRAIN WITHOUT CONTRAST CLINICAL INFORMATION: 31-year-old with self-reported dizziness and left leg numbness. COMPARISON: 09/18/2019 MRI. TECHNIQUE: Multiplanar multisequence MR imaging of the brain was done without IV contrast. FINDINGS: Brain Volume: Within normal limits within the limitations of qualitative assessment. Structural: No malformations. Brain and Meninges: DWI sequence demonstrates no restricted diffusion to suggest acute or subacute cerebral ischemia. Gradient refocused imaging demonstrates no evidence for hemorrhage, hemosiderin staining or abnormal mineral deposition. There is a 2.5 mm focus of FLAIR/T2 signal hyperintensity in the subcortical white matter of the right parietal lobe stable in appearance. There is a 2 mm right frontal subcortical white matter T2 hyperintensity on the current study, which is not clearly identified on the previous exam. Otherwise the remainder of the brain is normal in signal intensity. No extra-axial fluid collections, space-occupying process or mass effect are identified. Pereyra-white matter differentiation is well maintained. Ventricles and Subarachnoid Spaces: The ventricular system and subarachnoid spaces are stable in appearance, within normal limits without hydrocephalus. Orbital Structures: The visualized orbital structures are grossly unremarkable within the limitations of the study. Vascular: Signal voids are noted in the visualized major intracranial vessels. Osseous Structures, Sinuses/Mastoids, Extracranial Soft Tissues: Unremarkable. MR/MR head/brain wo con IMPRESSION: 1. No acute intracranial process. No evidence for hemorrhage, infarction, extra-axial fluid collection, space-occupying process, mass effect or hydrocephalus. 2. A few small subcortical white matter T2 hyperintensities in the right frontal and parietal lobes, one of which is stable from previous exam with the other being a new finding. These are nonspecific findings.
== END 2022-05-16 18:37 | disposition home or self-care (01) ==
LOC: HO.MRI 18:36
PROVIDERS: Visit Provider Psychiatry & Neurology Neurology
DX: R29.898 Other symptoms and signs involving the musculoskeletal system (principal); R42 Dizziness and giddiness; V89.2XXA Person injured in unspecified motor-vehicle accident, traffic, initial encounter
CPT/HCPCS: 70551

== ENCOUNTER 2022-05-22 16:22 | Outpatient (REF) | payer BC, SELFPAY ==
--- NOTE | ~2022-05-22 | CT_ITS ---
EXAMINATION: CT HEAD WITHOUT CONTRAST CLINICAL INFORMATION: Anesthesia of skin, headaches, dizziness and left leg weakness. COMPARISON: None TECHNIQUE: Contiguous axial imaging was performed from the skull base to vertex without intravenous administration of contrast. This CT examination was performed using dose optimization techniques as appropriate, variously including the following: *Automated exposure control *Adjustment of mA and/or kV according to patient size (this includes techniques or standardized protocols for targeted exams where dose is matched to indication/reason for exam; i.e. extremities or head) *Use of iterative reconstruction technique DLP: 781 mGy-cm FINDINGS: Brain Volume: Normal for age. Structural: No malformations. Brain and Meninges: The brain is normal in morphology and attenuation. There is no evidence for infarction, hemorrhage, extra-axial fluid collection, space-occupying process or mass effect. Pereyra-white matter differentiation is well maintained. Ventricles and Subarachnoid Spaces: The ventricular system and subarachnoid spaces are within normal limits, without hydrocephalus. Orbital Structures: Grossly unremarkable within the limitations of the study. Osseous Structures, Sinuses/Mastoids, Extracranial Soft Tissues: Unremarkable. CT/CT head/brain wo IV con IMPRESSION: Normal noncontrast CT of the brain.
== END 2022-05-22 16:23 | disposition home or self-care (01) ==
LOC: HO.CT 16:22
PROVIDERS: Visit Provider Internal Medicine Gastroenterology
DX: R20.0 Anesthesia of skin (principal); R20.2 Paresthesia of skin
CPT/HCPCS: 70450

== ENCOUNTER → 2022-05-30 08:06 | Outpatient (REF) | payer BC, SELFPAY ==
--- NOTE | ~2022-05-30 | NM_ITS ---
EXAMINATION: UT RADIONUCLIDE SOLID FOOD GASTRIC EMPTYING 4-HOUR STUDY CLINICAL INFORMATION: Early satiety. COMPARISON: None TECHNIQUE: A standard meal consisting of 4 oz of Egg Beaters brand tagged with 1.0 microcuries Tc-99m Sulfur Colloid, 8 oz water and 2 slices of toast with jelly was administered orally to the patient. Images were obtained using a dual head gamma camera in the anterior and posterior projections over of the stomach immediately post ingestion and at hourly intervals up to 4 hours post ingestion. The anterior and posterior counts at each time interval were averaged using the geometric mean and expressed as percentage of the immediate post ingestion counts. FINDINGS: There is good visualization of activity in the stomach immediately post ingestion. As the study progresses, there is good clearance of activity from the stomach and visualization of progressively increasing small bowel activity. By the end of the study, there is almost no retention noted in the stomach. Retention in the stomach at each time interval was: 1 hour 91% (normal 37%-90%) 2 hours 52% (normal 30%-60%) 3 hours 31% 4 hours 11% (normal 0%-10%) NM/UT gastric emptying study IMPRESSION: Borderline abnormal 4-hour solid food gastric emptying study.
== END ==
LOC: HO.NUCMED 08:06
PROVIDERS: PCP Internal Medicine; Visit Provider Internal Medicine Gastroenterology
DX: R68.81 Early satiety (principal); R11.2 Nausea with vomiting, unspecified
CPT/HCPCS: 78264; A9541

== ENCOUNTER 2022-06-29 16:26 | Outpatient (REF) | payer BC, SELFPAY ==
[2022-06-29 16:44] LABS: MANUAL DIFF FLAG NO
[2022-06-29 16:48] LABS: Basophils Percent Auto 0.3 % (0-2); Eosinophils Absolute Auto 0.2 X10*3/uL (0.0-0.4); Eosinophils Percent Auto 1.8 % (0-4); Hematocrit 34.8 % (37.0-47.0); Imm Gran Abs Auto 0.06 X10*3/uL (0.00-0.03); Imm Gran Pct Auto 0.6 % (0.0-0.4); Lymphocytes Absolute Auto 3.6 X10*3/uL (1.2-4.9); Mean Corpuscular HGB Conc 31.6 g/dl (31.0-35.0); Mean Corpuscular Hemoglobin 23.6 pg (27.0-33.0); Mean Corpuscular Volume 74.5 fL (80.0-98.0); Mean Platelet Volume 9.9 fL (9.4-12.3); Monocytes Absolute Auto 0.6 X10*3/uL (0.1-1.2); Monocytes Percent Auto 6.7 % (2-11); Neutrophils Absolute Auto 5.2 x10*3/uL (2.0-8.3); Neutrophils Percent Auto 53.6 % (45-73); Platelet Count 296 X10*3/uL (160-400); Red Blood Count 4.67 X10*6/uL (4.20-5.50); Red Cell Distribution Width 18.1 % (11.0-16.0); Retic HGB Equivalent 26.3 pg (30.0-35.0); Reticulocyte Percent 2.5 % (0.5-1.8); Reticulocytes Absolute 0.115 X10*6/uL (0.026-0.095); White Blood Count 9.6 X10*3/uL (4.8-10.8)
[2022-06-29 17:03] LABS: Alanine Aminotransferase 19 U/L (0-31); Albumin Level 4.2 g/dL (3.5-5.0); Alkaline Phosphatase 89 U/L (39-117); Anion Gap 14 (12-20); Aspartate Amino Transferase 33 U/L (5-31); Bilirubin Total 0.4 mg/dL (0.0-1.0); Blood Urea Nitrogen 11 mg/dL (9-16); Calcium 9.4 mg/dL (8.4-10.2); Carbon Dioxide 25 mmol/L (22-29); Chloride 103 mmol/L (96-108); Estimated Glomerular Filt Rate > 60; Glucose Random 102 mg/dL (60-115); Iron 74 mcg/dL (30-160); Percent Iron Saturation 27 % (15-50); Potassium 4.2 mmol/L (3.3-5.1); Sodium 138 mmol/L (135-145); Total Iron Binding Capacity 274 mcg/dL (228-428); Total Protein 7.7 g/dL (6.5-8.0); Unsaturated Iron Binding 200 ug/dL
[2022-06-29 17:20] LABS: Erythrocyte Sedimentation Rate 9 MM/HR (0-20)
[2022-06-29 17:23] LABS: Vitamin D 25-OH Total 30.1 ng/mL (>30)
[2022-06-29 17:24] LABS: Ferritin 98 ng/mL (10-122); Free T4 (Free Thyroxine) 1.14 ng/dL (0.71-1.85); Thyroid Stimulating Hormone 1.05 uIU/mL (0.32-4.0)
[2022-06-29 17:25] LABS: Appearance Urine Turbid; Color Urine Dark Yellow; Glucose Urine UA Negative (Negative); Leukocyte Esterase Urine Negative (Negative); Nitrite Urine Negative (Negative); PH 7.5 (5.0-9.0); Urine Blood Negative (Negative); Urine Ketones Negative (Negative); Urine Protein Negative (Neg-Trace)
[2022-06-29 17:30] LABS: Bacteria Urine Trace (None Seen); Hyaline Casts Urine 0-2 /LPF (0-2); RBC Urine 0-2 /HPF (0-2); WBC Urine 0-5 /HPF (0-5)
[2022-06-29 17:34] LABS: Folate 19.2 ng/mL (> or = 4.0); Vitamin B12 475 pg/mL (200-900)
[2022-07-01 14:56] LABS: CRP High Sensitivity 7.9 mg/L
== END 2022-06-29 16:27 | disposition home or self-care (01) ==
LOC: HO.LAB 16:26
PROVIDERS: Absent Provider Internal Medicine; PCP Internal Medicine; Visit Provider Nurse Practitioner Family
DX: D64.9 Anemia, unspecified (principal); R79.89 Other specified abnormal findings of blood chemistry
CPT/HCPCS: 36415; 80053; 81001; 82306; 82607; 82728; 82746; 83540; 84439; 84443; 85025; 85045; 85652; 86141

== ENCOUNTER → 2022-07-17 15:48 | Outpatient (REF) | payer BC, SELFPAY | LOC: HO.SL 15:48 | PROVIDERS: PCP Internal Medicine; Visit Provider Internal Medicine | DX: R06.83 Snoring (principal); G43.709 Chronic migraine without aura, not intractable, without status migrainosus | CPT/HCPCS: 95806 ==

== ENCOUNTER → 2022-08-03 06:56 | Outpatient (REF) | payer BC, SELFPAY ==
--- NOTE | 2022-08-03 06:59 | HM_ITS ---
Conclusion: 1. Patient was monitored for total period of 3 days 2. Baseline was normal sinus rhythm with average heart of 97 beats per minute 3. No significant pauses or bradycardia noted 4. Frequent sinus tachycardia with heart rate about 100 beats per minute 39% of the time 5. Very rare PACs noted 6. Patient reported twice that she was dizzy almost all day and patient markers correlated with sinus tachycardia. MTDD
== END ==
LOC: HO.CARD 06:56
PROVIDERS: PCP Internal Medicine; Visit Provider Internal Medicine
DX: R00.2 Palpitations (principal)
CPT/HCPCS: 93242

== ENCOUNTER → 2022-09-07 14:54 | Outpatient (BNVA) | payer BC, SELFPAY | PROVIDERS: PCP Internal Medicine; Referring Provider Internal Medicine; Visit Provider Internal Medicine | DX: Z13.89 Encounter for screening for other disorder (principal) ==

== ENCOUNTER 2022-10-11 06:37 | Outpatient (REF) | payer BC, SELFPAY ==
[2022-10-11 06:41] LABS: MANUAL DIFF FLAG NO
[2022-10-11 07:29] LABS: Basophils Percent Auto 0.5 % (0-2); Eosinophils Absolute Auto 0.2 X10*3/uL (0.0-0.4); Eosinophils Percent Auto 2.7 % (0-4); Hematocrit 37.6 % (37.0-47.0); Imm Gran Abs Auto 0.08 X10*3/uL (0.00-0.03); Imm Gran Pct Auto 0.9 % (0.0-0.4); Lymphocytes Absolute Auto 3.1 X10*3/uL (1.2-4.9); Lymphocytes Percent Auto 35.6 % (20-40); Mean Corpuscular HGB Conc 31.9 g/dl (31.0-35.0); Mean Corpuscular Hemoglobin 23.4 pg (27.0-33.0); Mean Corpuscular Volume 73.4 fL (80.0-98.0); Mean Platelet Volume 10.2 fL (9.4-12.3); Monocytes Absolute Auto 0.7 X10*3/uL (0.1-1.2); Monocytes Percent Auto 7.7 % (2-11); Neutrophils Absolute Auto 4.5 x10*3/uL (2.0-8.3); Neutrophils Percent Auto 52.6 % (45-73); Platelet Count 320 X10*3/uL (160-400); Red Blood Count 5.12 X10*6/uL (4.20-5.50); Red Cell Distribution Width 17.9 % (11.0-16.0); White Blood Count 8.6 X10*3/uL (4.8-10.8)
[2022-10-11 08:05] LABS: Alanine Aminotransferase 20 U/L (0-31); Alkaline Phosphatase 80 U/L (39-117); Anion Gap 13 (12-20); Aspartate Amino Transferase 25 U/L (5-31); Bilirubin Total 0.6 mg/dL (0.0-1.0); Blood Urea Nitrogen 10 mg/dL (9-16); Calcium 9.2 mg/dL (8.4-10.2); Carbon Dioxide 24 mmol/L (22-29); Chloride 108 mmol/L (96-108); Cholesterol 180 mg/dL; Estimated Glomerular Filt Rate > 60; Glucose Random 93 mg/dL (60-115); HDL Cholesterol 35 mg/dL; LDL Cholesterol Calculated 84 mg/dl; Magnesium 2.2 mg/dL (1.6-2.6); Phosphorus 3.3 mg/dL (2.7-4.5); Potassium 4.3 mmol/L (3.3-5.1); Sodium 141 mmol/L (135-145); Total Protein 7.3 g/dL (6.5-8.0); Triglycerides 305 mg/dL
[2022-10-11 08:35] LABS: Folate 17.8 ng/mL (> or = 4.0); Vitamin B12 466 pg/mL (200-900); Vitamin D 25-OH Total 35.1 ng/mL (>30)
== END 2022-10-11 06:38 | disposition home or self-care (01) ==
LOC: HO.LAB 06:37
PROVIDERS: PCP Internal Medicine; Visit Provider Internal Medicine
DX: K21.9 Gastro-esophageal reflux disease without esophagitis (principal); E78.00 Pure hypercholesterolemia, unspecified
CPT/HCPCS: 36415; 80053; 80061; 82306; 82607; 82746; 83735; 84100; 84439; 84443; 85025

== ENCOUNTER 2022-10-21 11:07 | Outpatient (REF) | payer BC, SELFPAY ==
--- NOTE | ~2022-10-21 | XR_ITS ---
EXAMINATION: XR chest 2V CLINICAL INFORMATION: Reason for Exam R05.9 - Cough, unspecified COMPARISON: No prior chest x-ray available in our system for comparison at the time of this dictation. TECHNIQUE: XR chest 2V Lungs and [place]: Both lungs are clear. Pleura: Normal. Costophrenic angles are sharp. No pneumothorax. Heart: The heart is normal in size. Mediastinum: The mediastinum is within normal limits.. Bones: Skeletal structures included are normal for patient's age. XR/XR chest 2V IMPRESSION: Normal chest x-ray.
== END 2022-10-21 11:08 | disposition home or self-care (01) ==
LOC: HO.HMGCX 11:07
PROVIDERS: PCP Internal Medicine; Visit Provider Physician Assistant Medical
DX: R05.9 Cough, unspecified (principal)
CPT/HCPCS: 71046

== ENCOUNTER 2022-10-23 14:00 | Emergency (ER) | payer BC, SELFPAY ==
--- NOTE | ~2022-10-23 | XR_ITS ---
EXAMINATION: XR CHEST CLINICAL INFORMATION: Cough. COMPARISON: None TECHNIQUE: 2 views of the chest were obtained. FINDINGS: No significant abnormality is noted involving the heart, lungs, mediastinum, bony thorax or soft tissues. XR/XR chest 2V IMPRESSION: Unremarkable chest examination.
--- NOTE | ~2022-10-23 | CT_ITS ---
EXAMINATION: CT ANGIOGRAM OF THE CHEST WITH AND WITHOUT CONTRAST (CT PULMONARY ANGIOGRAM FOR PE) CLINICAL INFORMATION: Acute on chronic chest pain. COMPARISON: No similar priors. TECHNIQUE: Prior to contrast administration, noncontrast localization images were obtained. Subsequently, multidetector volumetric imaging was performed from the thoracic inlet to below the diaphragms following the administration of 65 mL Omnipaque 350 intravenous contrast. No contrast reaction reported Sagittal, coronal, and MIP oblique sagittal reformatted images were obtained on the CT workstation, uploaded to PACS, and reviewed. This CT examination was performed using dose optimization techniques as appropriate, variously including the following: *Automated exposure control *Adjustment of mA and/or kV according to patient size (this includes techniques or standardized protocols for targeted exams where dose is matched to indication/reason for exam; i.e. extremities or head) *Use of iterative reconstruction technique Total exam dose-length product 308 mGy-cm FINDINGS: QUALITY OF STUDY/CONTRAST BOLUS: Suboptimal. PULMONARY ARTERIES: Evaluation of pulmonary emboli is limited secondary to timing of IV contrast, as the attenuation achieved in the pulmonary arteries is similar to the attenuation of the aorta and pulmonary veins, there is also motion. Accounting for these limitations, no central pulmonary emboli or large proximal segmental pulmonary emboli are noted. THORACIC AORTA: No aneurysm. LUNG: No focal consolidation or significant groundglass disease. No suspicious pulmonary nodule. Central airways are patent. PLEURA: No pleural effusion or pneumothorax. MEDIASTINUM: Normal heart size. No pericardial effusion. No hilar or mediastinal lymphadenopathy. No evidence of septal bowing or right heart strain. CORONARY ARTERY CALCIFICATION: None visualized on this study. CHEST WALL/AXILLA: No axillary or internal mammary lymphadenopathy. OSSEOUS STRUCTURES: No acute or suspicious osseous abnormality. UPPER ABDOMEN: Hepatic steatosis. No reflux of contrast into the hepatic veins to suggest elevated right heart pressures. CT/CT angio chest PE protocol IMPRESSION: 1. Evaluation of pulmonary emboli is limited as above. However, accounting for these limitations, no central pulmonary emboli or large proximal segmental pulmonary emboli are noted. 2. No evidence of increased right-sided heart pressures. 3. No focal consolidation or significant groundglass disease. 4. Hepatic steatosis. VTE: negative
--- NOTE | 2022-10-23 14:03 | ECG_ITS ---
Test Reason : CHEST PAIN Blood Pressure : / mmHG Vent. Rate : 115 BPM Atrial Rate : 115 BPM P-R Int : 140 ms QRS Dur : 076 ms QT Int : 320 ms P-R-T Axes : 026 028 020 degrees QTc Int : 442 ms Sinus tachycardia Otherwise normal ECG When compared with ECG of 20-JUN-2021 07:53, No significant change was found Referred By: Lin Jones Electronically Signed By:MATHEUS WATSON MD
[2022-10-23 14:24] VITALS: BP 155/102; PULSE 118; RESP 18; TEMP 36.8; O2SAT 100; BMI 34.0
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
[2022-10-23 15:24] LABS: MANUAL DIFF FLAG NO
[2022-10-23 15:26] LABS: Basophils Percent Auto 0.4 % (0-2); Eosinophils Absolute Auto 0.1 X10*3/uL (0.0-0.4); Eosinophils Percent Auto 1.1 % (0-4); Hematocrit 37.3 % (37.0-47.0); Imm Gran Abs Auto 0.13 X10*3/uL (0.00-0.03); Imm Gran Pct Auto 1.4 % (0.0-0.4); Lymphocytes Absolute Auto 2.1 X10*3/uL (1.2-4.9); Lymphocytes Percent Auto 22.7 % (20-40); Mean Corpuscular HGB Conc 32.2 g/dl (31.0-35.0); Mean Corpuscular Hemoglobin 23.3 pg (27.0-33.0); Mean Corpuscular Volume 72.6 fL (80.0-98.0); Mean Platelet Volume 9.5 fL (9.4-12.3); Monocytes Absolute Auto 0.6 X10*3/uL (0.1-1.2); Monocytes Percent Auto 6.1 % (2-11); Neutrophils Absolute Auto 6.4 x10*3/uL (2.0-8.3); Neutrophils Percent Auto 68.3 % (45-73); Platelet Count 311 X10*3/uL (160-400); Red Blood Count 5.14 X10*6/uL (4.20-5.50); Red Cell Distribution Width 18.4 % (11.0-16.0); White Blood Count 9.4 X10*3/uL (4.8-10.8)
[2022-10-23 15:37] LABS: Partial Thromboplastin Time 32.1 SEC (26.0-36.4)
[2022-10-23 15:43] LABS: Alanine Aminotransferase 15 U/L (0-31); Albumin Level 4.1 g/dL (3.5-5.0); Alkaline Phosphatase 83 U/L (39-117); Anion Gap 9 (12-20); Aspartate Amino Transferase 26 U/L (5-31); Bilirubin Direct < 0.2 mg/dL (0.0-0.5); Bilirubin Total 0.4 mg/dL (0.0-1.0); Blood Urea Nitrogen 8 mg/dL (9-16); Calcium 9.4 mg/dL (8.4-10.2); Carbon Dioxide 25 mmol/L (22-29); Chloride 110 mmol/L (96-108); Creatinine Clr Calc Pharmacy 99.9; Estimated Glomerular Filt Rate > 60; Glucose Random 104 mg/dL (60-115); Magnesium 2.1 mg/dL (1.6-2.6); Potassium 3.9 mmol/L (3.3-5.1); Sodium 140 mmol/L (135-145); Total Protein 7.7 g/dL (6.5-8.0)
[2022-10-23 15:49] LABS: Troponin-I High Sensitivity 3.5 ng/L (<3.5-17.0)
[2022-10-23 20:07] VITALS: BP 142/95; PULSE 121; RESP 18; O2SAT 99
--- NOTE | 2022-10-23 20:09 | PC.NURSE ---
Patient c/o mid sternal chest pressure and back mid scapula pain 6/10. tele: sinus tachycardia 120's
[2022-10-23] MEDS: iohexoL 350 MG/ML 100 ML INFUS..BTL IV (21:24)
== END 2022-10-23 22:46 | disposition home or self-care (01) ==
PROVIDERS: Physician Assistant; Emergency Provider Emergency Medicine; PCP Internal Medicine
DX: R07.2 Precordial pain (principal); R00.0 Tachycardia, unspecified; R42 Dizziness and giddiness; I10 Essential (primary) hypertension; F41.1 Generalized anxiety disorder; Z79.899 Other long term (current) drug therapy
CPT/HCPCS: 36415; 71046; 71275; 80048; 80076; 83735; 84484; 85025; 85610; 85730; 93005; 99284; Q9967

== ENCOUNTER 2022-11-01 11:29 | Outpatient (REF) | payer BC, SELFPAY ==
[2022-11-01 14:13] LABS: Appearance Urine Clear; Color Urine Yellow; Glucose Urine UA Negative (Negative); Leukocyte Esterase Urine Negative (Negative); Nitrite Urine Negative (Negative); Specific Gravity - Urine <= 1.005 (1.005-1.025); UMIC TRIGGER UACC YES; Urine Blood Large (3+) (Negative); Urine Ketones Negative (Negative); Urine Protein Trace mg/dL (Neg-Trace)
[2022-11-01 14:16] LABS: Bacteria Urine None Seen (None Seen); Hyaline Casts Urine 0-2 /LPF (0-2); Squamous Epithelial Cell Urine 0-2 /HPF (0-2); WBC Urine 0-5 /HPF (0-5)
== END 2022-11-01 11:30 | disposition home or self-care (01) ==
LOC: HO.LAB 11:29
PROVIDERS: PCP Internal Medicine; Visit Provider Internal Medicine
DX: R10.32 Left lower quadrant pain (principal)
CPT/HCPCS: 81001

== ENCOUNTER 2022-11-01 18:21 | Emergency (ER) | payer BC, SELFPAY ==
--- NOTE | ~2022-11-01 | XR_ITS ---
EXAMINATION: XR CHEST CLINICAL INFORMATION: Fever COMPARISON: CTA chest on 10/23/22 TECHNIQUE: 2 views of the chest were obtained. FINDINGS: No significant abnormality is noted involving the heart, lungs, mediastinum, bony thorax or soft tissues. XR/XR chest 2V IMPRESSION: Unremarkable examination.
[2022-11-01 18:39] VITALS: BP 132/91; PULSE 155; RESP 20; TEMP 39.4; O2SAT 99; BMI 34.0
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
--- NOTE | 2022-11-01 18:43 | ECG_ITS ---
Test Reason : ALLERGIC REACTION Blood Pressure : / mmHG Vent. Rate : 145 BPM Atrial Rate : 145 BPM P-R Int : 122 ms QRS Dur : 068 ms QT Int : 332 ms P-R-T Axes : 023 069 023 degrees QTc Int : 515 ms Sinus tachycardia Otherwise normal ECG When compared with ECG of 23-OCT-2022 14:11, No significant change was found Referred By: Lin Jones Electronically Signed By:LAKEISHA VILLEGAS
[2022-11-01] MEDS: Famotidine/PF 20 MG/2 ML VIAL IVPUSH (18:57)
[2022-11-01] MEDS: methylPREDNISolone Sod Succ 125 MG/2 ML VIAL IVPUSH (18:57)
[2022-11-01] MEDS: ondansetron HCL 4 MG/2 ML VIAL IVPUSH (18:57)
[2022-11-01] MEDS: diphenhydrAMINE HCL 50 MG/ML VIAL IVPUSH (18:59)
[2022-11-01] MEDS: Acetaminophen 325 MG TABLET 975 MG PO (18:59)
[2022-11-01] MEDS: 0.9 % Sodium Chloride 1,000 ML 999 ML IVCONT (19:00)
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
[2022-11-01 19:09] LABS: MANUAL DIFF FLAG NO
[2022-11-01 19:22] LABS: Lactic Acid 1.3 mmol/L (0.5-2.0)
[2022-11-01 19:28] LABS: Basophils Percent Auto 0.3 % (0-2); Hematocrit 37.7 % (37.0-47.0); Hemoglobin 12.5 g/dl (12.0-16.0); Imm Gran Abs Auto 0.03 X10*3/uL (0.00-0.03); Lymphocytes Absolute Auto 0.8 X10*3/uL (1.2-4.9); Lymphocytes Percent Auto 28.1 % (20-40); Mean Corpuscular HGB Conc 33.2 g/dl (31.0-35.0); Mean Corpuscular Hemoglobin 23.5 pg (27.0-33.0); Monocytes Absolute Auto 0.2 X10*3/uL (0.1-1.2); Monocytes Percent Auto 7.5 % (2-11); Neutrophils Absolute Auto 1.8 x10*3/uL (2.0-8.3); Neutrophils Percent Auto 62.1 % (45-73); Platelet Count 215 X10*3/uL (160-400); Red Blood Count 5.31 X10*6/uL (4.20-5.50); Red Cell Distribution Width 18.6 % (11.0-16.0); White Blood Count 2.9 X10*3/uL (4.8-10.8)
[2022-11-01 19:59] LABS: Alanine Aminotransferase 43 U/L (0-31); Albumin Level 4.5 g/dL (3.5-5.0); Alkaline Phosphatase 75 U/L (39-117); Anion Gap 13 (12-20); Aspartate Amino Transferase 97 U/L (5-31); Bilirubin Direct 0.2 mg/dL (0.0-0.5); Bilirubin Total 0.4 mg/dL (0.0-1.0); Blood Urea Nitrogen 9 mg/dL (9-16); Calcium 8.8 mg/dL (8.4-10.2); Carbon Dioxide 20 mmol/L (22-29); Chloride 101 mmol/L (96-108); Creatinine Clr Calc Pharmacy 67.4; Estimated Glomerular Filt Rate 54; Glucose Random 111 mg/dL (60-115); Magnesium 1.8 mg/dL (1.6-2.6); Potassium 4.3 mmol/L (3.3-5.1); Sodium 130 mmol/L (135-145); Total Protein 7.8 g/dL (6.5-8.0)
[2022-11-01 20:04] VITALS: BP 118/76; PULSE 129; RESP 19; TEMP 37.7; O2SAT 99
[2022-11-01 20:32] LABS: Appearance Urine Clear; Color Urine Yellow; Glucose Urine UA Negative (Negative); Leukocyte Esterase Urine Trace (Negative); Nitrite Urine Negative (Negative); UMIC TRIGGER UACC YES; Urine Blood Large (3+) (Negative); Urine Ketones Negative (Negative); Urine Protein Trace mg/dL (Neg-Trace)
[2022-11-01 20:34] LABS: Bacteria Urine None Seen (None Seen); Hyaline Casts Urine 0-2 /LPF (0-2); RBC Urine >20 /HPF (0-2); Squamous Epithelial Cell Urine 0-2 /HPF (0-2); WBC Urine 0-5 /HPF (0-5)
[2022-11-01 20:36] LABS: UPreg QC Valid YES; Urine Pregnancy NEGATIVE (NEGATIVE)
[2022-11-01] MEDS: 0.9 % Sodium Chloride 1,000 ML 999 ML IV (21:21)
[2022-11-01 22:23] VITALS: BP 109/69; PULSE 107; RESP 20; TEMP 36.9; O2SAT 100
--- NOTE | 2022-11-01 22:30 | PC.NURSE ---
This policy writer assumed care of this Pt at 1900. Pt came in from waiting room, tachycardia in the 150s, febrile, and red rash all over trunk, face red and flush looking, Pt hot to touch. IV established, meds given as documented. Pt ambulated to W/C and transported to [facility]. Pt reported increase dizziness, provider notified.
== END 2022-11-01 23:17 | disposition home or self-care (01) ==
PROVIDERS: Physician Assistant; Emergency Provider Emergency Medicine; PCP Internal Medicine
DX: R50.9 Fever, unspecified (principal); R00.0 Tachycardia, unspecified; T78.40XA Allergy, unspecified, initial encounter; X58.XXXA Exposure to other specified factors, initial encounter; E66.9 Obesity, unspecified; Z68.34 Body mass index [BMI] 34.0-34.9, adult
CPT/HCPCS: 36415; 71046; 80048; 80076; 81001; 81025; 83605; 83735; 85025; 87040; 93005; 96361; 96374; 96375; 99284; 99285; J1200; J2405; J2930

== ENCOUNTER 2022-11-22 11:19 | Outpatient (REF) | payer BC, SELFPAY ==
[2022-11-22 12:22] LABS: Hematocrit 34.7 % (37.0-47.0); Mean Corpuscular HGB Conc 31.7 g/dl (31.0-35.0); Mean Corpuscular Hemoglobin 23.5 pg (27.0-33.0); Mean Platelet Volume 10.6 fL (9.4-12.3); Platelet Count 324 X10*3/uL (160-400); Red Blood Count 4.69 X10*6/uL (4.20-5.50); Red Cell Distribution Width 19.3 % (11.0-16.0); White Blood Count 7.8 X10*3/uL (4.8-10.8)
[2022-11-22 12:39] LABS: Appearance Urine Clear; Color Urine Dark Yellow; Glucose Urine UA Negative (Negative); Leukocyte Esterase Urine Trace (Negative); Nitrite Urine Negative (Negative); UMIC TRIGGER UACC YES; Urine Blood Negative (Negative); Urine Ketones Negative (Negative); Urine Protein Negative (Neg-Trace)
[2022-11-22 12:46] LABS: Iron 69 mcg/dL (30-160); Percent Iron Saturation 29 % (15-50); Total Iron Binding Capacity 234 mcg/dL (228-428); Unsaturated Iron Binding 165 ug/dL
[2022-11-22 13:05] LABS: Ferritin 129 ng/mL (10-122)
[2022-11-22 13:19] LABS: Bacteria Urine None Seen (None Seen); Hyaline Casts Urine 0-2 /LPF (0-2); RBC Urine 0-2 /HPF (0-2); Squamous Epithelial Cell Urine 0-2 /HPF (0-2); WBC Urine 0-5 /HPF (0-5)
== END 2022-11-22 11:20 | disposition home or self-care (01) ==
LOC: HO.LAB 11:19
PROVIDERS: PCP Internal Medicine; Visit Provider Internal Medicine
DX: D64.9 Anemia, unspecified (principal)
CPT/HCPCS: 36415; 81001; 81003; 82728; 83540; 85027

== ENCOUNTER → 2022-11-24 07:21 | Outpatient (BNVA) | payer BC, SELFPAY | PROVIDERS: PCP Internal Medicine; Referring Provider Internal Medicine; Visit Provider Internal Medicine Gastroenterology | DX: Z13.89 Encounter for screening for other disorder (principal) ==

== ENCOUNTER 2022-12-06 12:50 | Outpatient (REF) | payer BC, SELFPAY ==
[2022-12-06 13:21] LABS: INTERNATIONAL NORM RATIO 0.9 (0.9-1.1); Prothrombin Time 10.7 SEC (10.0-13.1)
[2022-12-06 13:37] LABS: Alanine Aminotransferase 15 U/L (0-31); Albumin Level 4.3 g/dL (3.5-5.0); Alkaline Phosphatase 83 U/L (39-117); Aspartate Amino Transferase 30 U/L (5-31); Bilirubin Direct 0.2 mg/dL (0.0-0.5); Bilirubin Total 0.6 mg/dL (0.0-1.0); Total Protein 7.2 g/dL (6.5-8.0)
[2022-12-06 13:58] LABS: HBS Num1 > 1000.00 mIU/mL (0-7.99); HBc Num1 0.12 S/CO (0.00-0.79); HBsAGNum1 0.33 S/CO (0.00-0.99); Hepatitis B Core Antibody Nonreactive (Nonreactive); Hepatitis B Surface Antigen Negative (Negative); ~Hepatitis B Surface Antibody REACTIVE (Nonreactive); ~Hepatitis C Antibody Nonreactive (Nonreactive)
[2022-12-07 16:24] LABS: Ceruloplasmin 29 mg/dL (18-53)
[2022-12-08 22:59] LABS: Prot Elec - Albumin 4.3 g/dL (3.8-4.8); Prot Elec - Alpha1 0.3 g/dL (0.2-0.3); Prot Elec - Alpha2 0.6 g/dL (0.5-0.9); Prot Elec - Beta 1 0.4 g/dL (0.4-0.6); Prot Elec - Beta 2 0.4 g/dL (0.2-0.5); Prot Elec - Gamma 1.4 g/dL (0.8-1.7); Prot Elec - Total Protein 7.3 g/dL (6.1-8.1)
[2022-12-17 10:09] LABS: A1A Referring Physician NG
== END 2022-12-06 12:51 | disposition home or self-care (01) ==
LOC: HO.LAB 12:50
PROVIDERS: PCP Internal Medicine; Visit Provider Internal Medicine Gastroenterology
DX: R79.89 Other specified abnormal findings of blood chemistry (principal)
CPT/HCPCS: 36415; 80076; 82104; 82390; 84165; 85610; 86704; 86706; 86803; 87340

== ENCOUNTER → 2022-12-21 07:25 | Outpatient (BNVA) | payer BC, SELFPAY | PROVIDERS: PCP Internal Medicine; Referring Provider Internal Medicine; Visit Provider Internal Medicine Gastroenterology | DX: Z13.89 Encounter for screening for other disorder (principal) ==

== ENCOUNTER → 2023-01-02 14:00 | Outpatient (BNVA) | payer BC, SELFPAY | PROVIDERS: PCP Internal Medicine; Referring Provider Internal Medicine; Visit Provider Nurse Practitioner Family ==

== ENCOUNTER 2023-01-03 14:48 | Outpatient (REF) | payer BC, SELFPAY ==
[2023-01-04 05:43] LABS: CT PCR NOT DETECTED (Not Detect.); NG PCR NOT DETECTED (Not Detect.)
[2023-01-06 06:39] LABS: HPV mRNA E6/E7 rflx Not Detected (Not Detected)
== END 2023-01-03 14:49 | disposition home or self-care (01) ==
LOC: HO.LNP 14:48
PROVIDERS: PCP Internal Medicine; Visit Provider Advanced Practice Midwife
DX: Z01.419 Encounter for gynecological examination (general) (routine) without abnormal findings (principal); Z11.51 Encounter for screening for human papillomavirus (HPV); Z20.2 Contact with and (suspected) exposure to infections with a predominantly sexual mode of transmission
CPT/HCPCS: 0353U; 87624; 88142

== ENCOUNTER → 2023-01-11 14:13 | Outpatient (BNVA) | payer BC, SELFPAY | PROVIDERS: PCP Internal Medicine; Visit Provider Nurse Practitioner Family ==

== ENCOUNTER 2023-01-19 08:44 | Outpatient (REF) | payer BC, SELFPAY ==
--- NOTE | ~2023-01-19 | MM_ITS ---
EXAMINATION: MM DIAGNOSTIC DIGITAL BREAST TOMOSYNTHESIS, BILATERAL US BREAST, LEFT CLINICAL INFORMATION: Left mastodynia The lifetime risk of breast cancer based on the Tyrer-Cuzick Model is 14%. COMPARISON: Mammography: None TECHNIQUE: Digital breast tomosynthesis is performed in both the craniocaudal and mediolateral oblique views along with computer-aided detection (CAD). Synthesized 2D images are generated from the tomosynthesis. TARGETED LEFT BREAST ULTRASOUND FINDINGS: There are scattered areas of fibroglandular density (ACR BI-RADS breast composition Category b). There are no significant masses, abnormal calcifications, or other abnormalities. Targeted left breast ultrasound to the region of pain about the superior aspect of the left breast performed with no underlying cystic or solid mass. No region of abnormal distal sound shadowing. No edematous change within the parenchyma. Results are discussed with the patient at time of visit. MM/MM tomosynthesis diagnostic BI IMPRESSION: No mammographic or evidence of malignancy. ASSESSMENT: BI-RADS 1: Negative RECOMMENDATION: 1. Patient should be managed based on the clinical impression. Decision to proceed with biopsy should be based on clinical grounds and degree of clinical concern. 2. Otherwise, routine annual screening mammography starting at age 40. This patient's information was entered into a reminder system with a target due date for their next mammogram.
== END 2023-01-19 08:45 | disposition home or self-care (01) ==
LOC: HO.MAMMO 08:44
PROVIDERS: PCP Internal Medicine; Visit Provider Internal Medicine
DX: N64.4 Mastodynia (principal)
CPT/HCPCS: 76642; 77062; 77066

== ENCOUNTER → 2023-01-24 10:40 | Outpatient (REF) | payer BC, SELFPAY | LOC: HO.CARD 10:40 | PROVIDERS: PCP Internal Medicine; Visit Provider Nurse Practitioner Family | DX: R00.0 Tachycardia, unspecified (principal); R42 Dizziness and giddiness; R55 Syncope and collapse | CPT/HCPCS: 93270 ==

== ENCOUNTER → 2023-02-06 13:50 | Outpatient (BNVA) | payer BC, SELFPAY | PROVIDERS: PCP Internal Medicine; Visit Provider Advanced Practice Midwife ==

== ENCOUNTER 2023-02-09 14:18 | Outpatient (REF) | payer BC, SELFPAY ==
[2023-02-09 14:32] LABS: MANUAL DIFF FLAG NO
[2023-02-09 15:16] LABS: Basophils Percent Auto 0.3 % (0-2); Eosinophils Absolute Auto 0.1 X10*3/uL (0.0-0.4); Eosinophils Percent Auto 1.3 % (0-4); Hematocrit 36.2 % (37.0-47.0); Hemoglobin 11.5 g/dl (12.0-16.0); Imm Gran Abs Auto 0.06 X10*3/uL (0.00-0.03); Imm Gran Pct Auto 0.6 % (0.0-0.4); Lymphocytes Absolute Auto 2.9 X10*3/uL (1.2-4.9); Lymphocytes Percent Auto 29.3 % (20-40); Mean Corpuscular HGB Conc 31.8 g/dl (31.0-35.0); Mean Corpuscular Hemoglobin 23.9 pg (27.0-33.0); Mean Corpuscular Volume 75.1 fL (80.0-98.0); Mean Platelet Volume 11.3 fL (9.4-12.3); Monocytes Absolute Auto 0.6 X10*3/uL (0.1-1.2); Monocytes Percent Auto 5.7 % (2-11); Neutrophils Absolute Auto 6.3 x10*3/uL (2.0-8.3); Neutrophils Percent Auto 62.8 % (45-73); Platelet Count 331 X10*3/uL (160-400); Red Blood Count 4.82 X10*6/uL (4.20-5.50); Red Cell Distribution Width 18.9 % (11.0-16.0)
[2023-02-09 18:55] LABS: Alanine Aminotransferase 14 U/L (0-31); Albumin Level 4.2 g/dL (3.5-5.0); Alkaline Phosphatase 85 U/L (39-117); Anion Gap 15 (12-20); Aspartate Amino Transferase 26 U/L (5-31); Bilirubin Total 0.4 mg/dL (0.0-1.0); Blood Urea Nitrogen 9 mg/dL (9-16); Calcium 9.7 mg/dL (8.4-10.2); Carbon Dioxide 22 mmol/L (22-29); Chloride 105 mmol/L (96-108); Estimated Glomerular Filt Rate > 60; Glucose Random 106 mg/dL (60-115); Potassium 3.8 mmol/L (3.3-5.1); Sodium 138 mmol/L (135-145); Total Protein 7.6 g/dL (6.5-8.0)
[2023-02-09 19:10] LABS: Free T4 (Free Thyroxine) 0.89 ng/dL (0.71-1.85)
== END 2023-02-09 14:19 | disposition home or self-care (01) ==
LOC: HO.LAB 14:18
PROVIDERS: PCP Internal Medicine; Visit Provider Internal Medicine
DX: R19.7 Diarrhea, unspecified (principal)
CPT/HCPCS: 36415; 80053; 84439; 84443; 85025

== ENCOUNTER 2023-02-20 13:50 | Outpatient (REF) | payer BC, SELFPAY ==
[2023-02-20 14:36] LABS: Appearance Urine Clear; Color Urine Dark Yellow; Glucose Urine UA Negative (Negative); Leukocyte Esterase Urine Trace (Negative); Nitrite Urine Negative (Negative); PH 5.5 (5.0-9.0); Specific Gravity - Urine 1.015 (1.005-1.025); UMIC TRIGGER UACC YES; Urine Blood Negative (Negative); Urine Ketones Negative (Negative); Urine Protein Negative (Neg-Trace)
[2023-02-20 14:38] LABS: Bacteria Urine 1+ (None Seen); Hyaline Casts Urine 0-2 /LPF (0-2); RBC Urine 0-2 /HPF (0-2); UACC Culture Trigger YES
== END 2023-02-20 13:51 | disposition home or self-care (01) ==
LOC: HO.LAB 13:50
PROVIDERS: PCP Internal Medicine; Visit Provider Internal Medicine
DX: R30.0 Dysuria (principal)
CPT/HCPCS: 81001; 87086

== ENCOUNTER 2023-02-28 16:06 | Outpatient (REF) | payer BC, SELFPAY | END 2023-02-28 16:07 | disposition home or self-care (01) | LOC: HO.LAB 16:06 | PROVIDERS: Visit Provider Internal Medicine | DX: R10.32 Left lower quadrant pain (principal) | CPT/HCPCS: 81003 ==

== ENCOUNTER 2023-03-06 08:49 | Outpatient (RCR) | payer BC, SELFPAY ==
[2023-03-06 08:58] VITALS: BP 138/78; PULSE 83; O2SAT 99
--- NOTE | 2023-03-06 10:57 | MHC.PT.EP ---
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 Pt was screened today for MIKE Hallpike and Roll testing with negative screening. Pt exhibits negative oculomotor screening and negative neuro screen. Pt's cardiology workup is consistent with pt's reports: Conclusion: 1. Baseline normal sinus rhythm with frequent sinus tachycardia 2. Rare PACs noted 3. Patient reported multiple events that correlated with sinus rhythm with symptoms palpitation correlated with sinus tachycardia. Dictated By:Joe Sol MD Signed By:<Electronically signed by Joe Sol MD>03/02/23 1243 Pt expresses she has a follow up with Dr. Auguste on Sunday related to recent history of UTI. Pt has a cardiology follow -up scheduled for . Pt does not appear to require any further skilled PT services at this time. Pt admits to worsening sleep schedules, increased depression/anxiety related to being OOW. Pt reports she has been unable to continue her ongoing therapy due to hault of financial constraints due to copay cost and inability to set up a payment plan with her counseling services. PT connected patient with community health navigation worker this date to see if patient will quality or can be aided by any other services at this time. Frequency and Duration: The patient will be seen none Short Term Goals: No further therapy is indicated at this time Button Breaker Goals: No further therapy is indicated at this time Treatment Plan: Modalities to reduce pain, spasms and effusion. Manual therapy to restore motion and function. Therapeutic exercise to improve strength and flexibility. Neuromuscular re-education for posture and balance. Therapeutic activities to return to functional activities of daily living. Electronically signed by: Jadyn Streetre PT, DPT Please sign and return to therapist. Thank you for your referral.
== END 2023-08-14 10:46 | disposition home or self-care (01) ==
LOC: HO.PTWFD 08:49
PROVIDERS: PCP Internal Medicine; Visit Provider Internal Medicine
DX: R42 Dizziness and giddiness (principal)
CPT/HCPCS: 97163

== ENCOUNTER 2023-03-08 13:47 | Outpatient (REF) | payer BC, SELFPAY ==
[2023-03-08 15:27] LABS: MANUAL DIFF FLAG NO
[2023-03-08 15:40] LABS: Appearance Urine Clear; Color Urine Dark Yellow; Glucose Urine UA Negative (Negative); Leukocyte Esterase Urine Negative (Negative); Nitrite Urine Negative (Negative); PH 6.5 (5.0-9.0); Urine Blood Negative (Negative); Urine Ketones Negative (Negative); Urine Protein Negative (Neg-Trace)
[2023-03-08 15:41] LABS: Basophils Percent Auto 0.4 % (0-2); Eosinophils Absolute Auto 0.1 X10*3/uL (0.0-0.4); Eosinophils Percent Auto 1.6 % (0-4); Hematocrit 36.7 % (37.0-47.0); Hemoglobin 11.8 g/dl (12.0-16.0); Imm Gran Abs Auto 0.09 X10*3/uL (0.00-0.03); Imm Gran Pct Auto 1.1 % (0.0-0.4); Lymphocytes Absolute Auto 2.5 X10*3/uL (1.2-4.9); Lymphocytes Percent Auto 28.9 % (20-40); Mean Corpuscular HGB Conc 32.2 g/dl (31.0-35.0); Mean Corpuscular Hemoglobin 23.5 pg (27.0-33.0); Mean Platelet Volume 10.2 fL (9.4-12.3); Monocytes Absolute Auto 0.6 X10*3/uL (0.1-1.2); Monocytes Percent Auto 7.4 % (2-11); Neutrophils Absolute Auto 5.2 x10*3/uL (2.0-8.3); Neutrophils Percent Auto 60.6 % (45-73); Platelet Count 327 X10*3/uL (160-400); Red Blood Count 5.03 X10*6/uL (4.20-5.50); Red Cell Distribution Width 18.1 % (11.0-16.0); White Blood Count 8.6 X10*3/uL (4.8-10.8)
[2023-03-08 15:45] LABS: Fibrinogen 448 MG/DL (259-690)
[2023-03-08 16:10] LABS: Alanine Aminotransferase 16 U/L (0-31); Albumin Level 4.2 g/dL (3.5-5.0); Alkaline Phosphatase 82 U/L (39-117); Anion Gap 10 (12-20); Aspartate Amino Transferase 28 U/L (5-31); Bilirubin Total 0.5 mg/dL (0.0-1.0); Blood Urea Nitrogen 9 mg/dL (9-16); C Reactive Protein 0.78 mg/dL (< or = 0.50); Calcium 9.7 mg/dL (8.4-10.2); Carbon Dioxide 27 mmol/L (22-29); Chloride 104 mmol/L (96-108); Estimated Glomerular Filt Rate > 60; Glucose Random 94 mg/dL (60-115); Lipase 16 U/L (8-78); Sodium 137 mmol/L (135-145); Total Protein 7.5 g/dL (6.5-8.0)
[2023-03-13 15:43] LABS: Anti Nuclear Antibody Screen NEGATIVE (NEGATIVE)
[2023-03-14 20:08] LABS: Porphobilinogen, Random Urine 0.171 mg/g creat (<0.22)
== END 2023-03-08 13:48 | disposition home or self-care (01) ==
LOC: HO.LAB 13:47
PROVIDERS: PCP Internal Medicine; Visit Provider Internal Medicine Gastroenterology
DX: R79.89 Other specified abnormal findings of blood chemistry (principal); K29.80 Duodenitis without bleeding; K27.9 Peptic ulcer, site unspecified, unspecified as acute or chronic, without hemorrhage or perforation; B96.81 Helicobacter pylori [H. pylori] as the cause of diseases classified elsewhere; K58.0 Irritable bowel syndrome with diarrhea; K21.9 Gastro-esophageal reflux disease without esophagitis; R76.8 Other specified abnormal immunological findings in serum
CPT/HCPCS: 80053; 81003; 83690; 84106; 85025; 85384; 86038; 86140

== ENCOUNTER 2023-03-08 13:47 | Outpatient (AMB) | payer BC, SELFPAY ==
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
[2023-03-08 14:07] VITALS: BP 117/79; PULSE 100
== END 2023-03-08 14:56 | disposition home or self-care (01) ==
PROVIDERS: PCP Internal Medicine; Visit Provider Internal Medicine Gastroenterology
DX: R19.7 Diarrhea, unspecified (principal); R79.89 Other specified abnormal findings of blood chemistry; K29.80 Duodenitis without bleeding; K27.9 Peptic ulcer, site unspecified, unspecified as acute or chronic, without hemorrhage or perforation; B96.81 Helicobacter pylori [H. pylori] as the cause of diseases classified elsewhere; K58.0 Irritable bowel syndrome with diarrhea; K21.9 Gastro-esophageal reflux disease without esophagitis; R10.10 Upper abdominal pain, unspecified; R76.8 Other specified abnormal immunological findings in serum
CPT/HCPCS: 99499

== ENCOUNTER 2023-03-09 13:34 | Outpatient (AMB) | payer BC, SELFPAY ==
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
[2023-03-09 13:39] VITALS: BP 128/70; PULSE 94; O2SAT 98; BMI 32.9
== END 2023-03-09 14:05 | disposition home or self-care (01) ==
PROVIDERS: PCP Internal Medicine; Visit Provider Internal Medicine
DX: K58.0 Irritable bowel syndrome with diarrhea (principal); E66.9 Obesity, unspecified; Z68.32 Body mass index [BMI] 32.0-32.9, adult; K21.9 Gastro-esophageal reflux disease without esophagitis; R42 Dizziness and giddiness; F41.1 Generalized anxiety disorder; R10.2 Pelvic and perineal pain; M54.50 Low back pain, unspecified
CPT/HCPCS: 99214

== ENCOUNTER 2023-03-16 14:17 | Outpatient (REF) | payer BC, SELFPAY ==
--- NOTE | ~2023-03-16 | US_ITS ---
EXAMINATION: US PELVIS CLINICAL INFORMATION: Pelvic and perineal pain. Left pelvic pain since beginning of February. COMPARISON: None available. TECHNIQUE: Ultrasound of the pelvis is performed using both transabdominal and transvaginal transducers along with Doppler. Transvaginal imaging is performed due to inadequate visualization transabdominally. FINDINGS: The uterus is heterogeneous, anteverted and measures 8.8 x 3.8 x 4.6 cm. No significant free fluid in the pelvis There is a 0.9 x 0.5 x 0.8 cm hypoechoic structure to the left of the uterus better appreciated on transabdominal ultrasound images and difficult to characterize due to limited visualization. While this may possibly represent an exophytic/pedunculated fibroid, other etiologies should also be considered. Right ovary measures 3.3 x 2.5 x 2.8 cm, volume 12.1 mL. 1.5 x 1.5 x 1.6 cm complex right ovarian cyst with thick wall, possibly a corpus luteum. Left ovary measures 4.0 x 2.4 x 2.8 cm, volume 14.1 mL. Left ovarian 2.8 x 1.6 x 1.7 cm cyst appears mildly complex with low-level internal echoes Endometrial thickness is 1.3 cm. Fluid collection with possible septations or folds is located between the ovary and difficult to characterize due to limited visualization. While this could be related to hydrosalpinx, other etiologies should also be considered. US/US pelvic and transvaginal IMPRESSION: 1. A 0.9 cm hypoechoic structure to the left of the uterus better appreciated on transabdominal ultrasound images and difficult to characterize due to limited visualization. While this may possibly represent an exophytic/pedunculated fibroid, other etiologies should also be considered. 2. Right ovarian 1.6 cm complex thick-walled cyst, possibly a corpus luteum. Left ovarian 2.8 cm mildly complex cyst with low-level internal echoes. 3. Fluid collection with possible septations or folds is located between the ovary and difficult to characterize due to limited visualization. While this could be related to hydrosalpinx, other etiologies should also be considered. Gynecologic consultation and correlation with clinical and laboratory exam recommended to determine further management. Recommend follow-up ultrasound in 6-8 weeks. MRI could be considered for further evaluation based on the clinical assessment.
== END 2023-03-16 14:18 | disposition home or self-care (01) ==
LOC: HO.US 14:17
PROVIDERS: PCP Internal Medicine; Visit Provider Internal Medicine
DX: R10.2 Pelvic and perineal pain (principal)
CPT/HCPCS: 76830; 76856

== ENCOUNTER 2023-03-27 15:36 | Outpatient (AMB) | payer BC, SELFPAY ==
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
[2023-03-27 15:43] VITALS: BP 120/80; PULSE 88; BMI 33.3
== END 2023-03-27 16:25 | disposition home or self-care (01) ==
PROVIDERS: Visit Provider Nurse Practitioner Family
DX: R00.0 Tachycardia, unspecified (principal); R42 Dizziness and giddiness; I10 Essential (primary) hypertension
CPT/HCPCS: 99213

== ENCOUNTER → 2023-03-27 15:36 | Outpatient (BNVA) | payer BC, SELFPAY | PROVIDERS: Visit Provider Nurse Practitioner Family ==

== ENCOUNTER 2023-04-03 07:52 | Outpatient (REF) | payer BC, SELFPAY ==
[2023-04-04 12:48] LABS: BV Int Neg Control Negative (Negative); BV Int Pos Control Positive (Positive)
== END 2023-04-03 07:53 | disposition home or self-care (01) ==
LOC: HO.LAB 07:52
PROVIDERS: PCP Internal Medicine; Visit Provider Advanced Practice Midwife
DX: R10.2 Pelvic and perineal pain (principal); N89.8 Other specified noninflammatory disorders of vagina; N64.4 Mastodynia; N83.291 Other ovarian cyst, right side; N83.292 Other ovarian cyst, left side; Z71.2 Person consulting for explanation of examination or test findings
CPT/HCPCS: 87480; 87510; 87660

== ENCOUNTER 2023-04-03 07:52 | Outpatient (AMB) | payer BC, SELFPAY ==
[2023-04-03 07:58] VITALS: BP 124/76; BMI 33.3
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
== END 2023-04-03 08:33 | disposition home or self-care (01) ==
LOC: HO.HWS 07:52
PROVIDERS: PCP Internal Medicine; Visit Provider Advanced Practice Midwife
DX: Z71.2 Person consulting for explanation of examination or test findings (principal); R10.2 Pelvic and perineal pain; N89.8 Other specified noninflammatory disorders of vagina; N64.4 Mastodynia; N83.209 Unspecified ovarian cyst, unspecified side
CPT/HCPCS: 99213

== ENCOUNTER 2023-04-13 09:20 | Outpatient (AMB) | payer BC, SELFPAY ==
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
[2023-04-13 09:29] VITALS: BP 134/87; PULSE 103; BMI 33.4
== END 2023-04-13 10:49 | disposition home or self-care (01) ==
PROVIDERS: PCP Internal Medicine; Visit Provider Internal Medicine Gastroenterology
DX: R10.10 Upper abdominal pain, unspecified (principal); R19.7 Diarrhea, unspecified; R79.89 Other specified abnormal findings of blood chemistry; K29.80 Duodenitis without bleeding; K27.9 Peptic ulcer, site unspecified, unspecified as acute or chronic, without hemorrhage or perforation; B96.81 Helicobacter pylori [H. pylori] as the cause of diseases classified elsewhere; K58.0 Irritable bowel syndrome with diarrhea; K21.9 Gastro-esophageal reflux disease without esophagitis
CPT/HCPCS: 99499

== ENCOUNTER → 2023-04-13 09:20 | Outpatient (BNVA) | payer BC, SELFPAY | PROVIDERS: PCP Internal Medicine; Visit Provider Internal Medicine Gastroenterology ==

== ENCOUNTER 2023-05-02 15:44 | Outpatient (REF) | payer BC, SELFPAY ==
--- NOTE | ~2023-05-02 | US_ITS ---
EXAMINATION: US PELVIS COMPLETE CLINICAL INFORMATION: Right ovarian cyst COMPARISON: Pelvic ultrasound 02/14/2023 TECHNIQUE: Transabdominal and transvaginal imaging was performed. FINDINGS: The uterus is of normal size and echogenicity measuring 7.7 x 3.6 x 4.2 cm. A regular homogeneous endometrium is identified measuring 0.9 cm. A 1.1 cm subserosal pedunculated myoma in the left fundus of the uterus previously 0.9 cm. Trace fluid within the endocervical canal. The right ovary measures 2.9 x 2.1 x 2.3 cm for a volume of 7.3 mL. The left measures 3.8 x 2.6 x 3.3 cm for a volume of 17.1 mL. There is a physiologic involuting right hemorrhagic corpus luteum, no routine follow up imaging recommended. A 2.3 x 1.9 x 2.3 cm cystic left ovarian lesion, previously 2.8 x 1.6 x 1.7 cm with low-level internal echoes and possibly an endometrioma. There is a dilated fluid-filled tubular structure in the left adnexa raising the suspicion for a moderate hydrosalpinx however there is a question of a 0.7 cm solid avascular nodules in the structure. There is no pelvic free fluid. US/US pelvic and transvaginal IMPRESSION: * There is a dilated fluid filled tubular structure in the left adnexa raising the suspicion for a moderate hydrosalpinx however there is a question of a 0.7 cm solid avascular nodule in the structure. Recommend further evaluation with contrast-enhanced MR pelvis. * A 2.3 cm cystic left ovarian lesion, previously 2.8 cm with low-level internal echoes possibly an endometrioma given persistence of findings. Attention on above recommended MR and and if findings are confirmed to reflect an endometrioma recommend annual follow-up ultrasound if not surgically resected. * A 1.1 cm subserosal pedunculated myoma in the left fundus of the uterus. * Trace fluid within the endocervical canal.
== END 2023-05-02 15:45 | disposition home or self-care (01) ==
LOC: HO.US 15:44
PROVIDERS: PCP Internal Medicine; Visit Provider Advanced Practice Midwife
DX: N83.291 Other ovarian cyst, right side (principal); N83.292 Other ovarian cyst, left side
CPT/HCPCS: 76830; 76856

== ENCOUNTER 2023-05-16 08:54 | Outpatient (AMB) | payer BC, SELFPAY ==
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
[2023-05-16 08:56] VITALS: BP 116/80; BMI 33.3
== END 2023-05-16 09:34 | disposition home or self-care (01) ==
PROVIDERS: PCP Internal Medicine; Visit Provider Advanced Practice Midwife
DX: Z71.2 Person consulting for explanation of examination or test findings (principal); N83.9 Noninflammatory disorder of ovary, fallopian tube and broad ligament, unspecified; N83.209 Unspecified ovarian cyst, unspecified side; R10.2 Pelvic and perineal pain
CPT/HCPCS: 99213

== ENCOUNTER → 2023-05-16 08:54 | Outpatient (BNVA) | payer BC, SELFPAY | PROVIDERS: PCP Internal Medicine; Visit Provider Advanced Practice Midwife ==

== ENCOUNTER 2023-06-04 08:40 | Outpatient (REF) | payer BC, SELFPAY ==
[2023-06-05 09:14] LABS: CA-125 33 U/mL (<35)
== END 2023-06-04 08:41 | disposition home or self-care (01) ==
LOC: HO.MRI 08:40
PROVIDERS: PCP Internal Medicine; Visit Provider Advanced Practice Midwife
DX: N83.9 Noninflammatory disorder of ovary, fallopian tube and broad ligament, unspecified (principal)
CPT/HCPCS: 36415; 72197; 86304; A9585

== ENCOUNTER 2023-06-20 09:04 | Outpatient (AMB) | payer BC, SELFPAY ==
[2023-06-20 09:12] VITALS: BP 114/74; BMI 34.6
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
== END 2023-06-20 10:21 | disposition home or self-care (01) ==
PROVIDERS: PCP Internal Medicine; Visit Provider Advanced Practice Midwife
DX: N70.11 Chronic salpingitis (principal); R10.2 Pelvic and perineal pain; N80.129 Deep endometriosis of ovary, unspecified ovary; D21.9 Benign neoplasm of connective and other soft tissue, unspecified; Z71.2 Person consulting for explanation of examination or test findings
CPT/HCPCS: 99214

== ENCOUNTER 2023-06-20 09:04 | Outpatient (REF) | payer BC, SELFPAY | END 2023-06-20 09:05 | disposition home or self-care (01) | LOC: HO.LNP 09:04 | PROVIDERS: PCP Internal Medicine; Visit Provider Advanced Practice Midwife | DX: R10.2 Pelvic and perineal pain (principal); N70.11 Chronic salpingitis; N80.129 Deep endometriosis of ovary, unspecified ovary; D21.9 Benign neoplasm of connective and other soft tissue, unspecified; Z71.2 Person consulting for explanation of examination or test findings | CPT/HCPCS: 96372; J0696 ==

== ENCOUNTER 2023-06-20 09:38 | Outpatient (REF) | payer BC, SELFPAY ==
[2023-06-20 18:42] LABS: CT PCR NOT DETECTED (Not Detect.); NG PCR NOT DETECTED (Not Detect.)
[2023-06-21 13:37] LABS: BV Int Neg Control Negative (Negative); BV Int Pos Control Positive (Positive)
== END 2023-06-20 09:39 | disposition home or self-care (01) ==
LOC: HO.LAB 09:38
PROVIDERS: Visit Provider Advanced Practice Midwife
DX: R10.2 Pelvic and perineal pain (principal)
CPT/HCPCS: 0353U; 87480; 87510; 87660

== ENCOUNTER 2023-06-22 15:33 | Outpatient (AMB) | payer BC, SELFPAY ==
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
[2023-06-22 15:47] VITALS: BP 110/72; BMI 34.6
== END 2023-06-22 16:00 | disposition home or self-care (01) ==
PROVIDERS: PCP Internal Medicine; Visit Provider Advanced Practice Midwife
DX: N70.11 Chronic salpingitis (principal); R10.2 Pelvic and perineal pain; N80.129 Deep endometriosis of ovary, unspecified ovary; D21.9 Benign neoplasm of connective and other soft tissue, unspecified; Z71.2 Person consulting for explanation of examination or test findings
CPT/HCPCS: 99214

== ENCOUNTER 2023-06-22 15:33 | Outpatient (REF) | payer BC, SELFPAY ==
[2023-06-22 16:50] LABS: Appearance Urine Clear; Color Urine Dark Yellow; Glucose Urine UA Negative (Negative); Leukocyte Esterase Urine Small (1+) (Negative); Nitrite Urine Negative (Negative); Specific Gravity - Urine 1.025 (1.005-1.025); UMIC TRIGGER UA YES; Urine Blood Negative (Negative); Urine Ketones Negative (Negative); Urine Protein Negative (Neg-Trace)
[2023-06-22 17:04] LABS: Bacteria Urine None Seen (None Seen); Calcium Oxalate Crystals Urine Present; Hyaline Casts Urine 0-2 /LPF (0-2); WBC Urine 0-5 /HPF (0-5)
== END 2023-06-22 15:34 | disposition home or self-care (01) ==
LOC: HO.LNP 15:33
PROVIDERS: PCP Internal Medicine; Visit Provider Advanced Practice Midwife
DX: N70.11 Chronic salpingitis (principal); R10.2 Pelvic and perineal pain; N80.129 Deep endometriosis of ovary, unspecified ovary; D21.9 Benign neoplasm of connective and other soft tissue, unspecified; Z71.2 Person consulting for explanation of examination or test findings
CPT/HCPCS: 81001; 81025

== ENCOUNTER 2023-07-05 15:22 | Outpatient (AMB) | payer BC, SELFPAY ==
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
[2023-07-05 15:38] VITALS: BP 110/70
== END 2023-07-05 16:01 | disposition home or self-care (01) ==
PROVIDERS: PCP Internal Medicine; Visit Provider Advanced Practice Midwife
DX: Z20.2 Contact with and (suspected) exposure to infections with a predominantly sexual mode of transmission (principal); N80.129 Deep endometriosis of ovary, unspecified ovary
CPT/HCPCS: 99213

== ENCOUNTER → 2023-07-05 15:22 | Outpatient (BNVA) | payer BC, SELFPAY | PROVIDERS: PCP Internal Medicine; Visit Provider Advanced Practice Midwife ==

== ENCOUNTER 2023-07-25 13:43 | Outpatient (AMB) | payer BC, SELFPAY ==
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
[2023-07-25 13:51] VITALS: BP 146/86; PULSE 91; RESP 15; O2SAT 99; BMI 34.8
== END 2023-07-25 14:05 | disposition home or self-care (01) ==
PROVIDERS: Visit Provider Nurse Practitioner Family
DX: R42 Dizziness and giddiness (principal); G43.709 Chronic migraine without aura, not intractable, without status migrainosus
CPT/HCPCS: 99213

== ENCOUNTER → 2023-07-25 13:43 | Outpatient (BNVA) | payer BC, SELFPAY | PROVIDERS: Visit Provider Nurse Practitioner Family ==

== ENCOUNTER 2023-08-07 16:22 | Outpatient (REF) | payer BC, SELFPAY ==
--- NOTE | ~2023-08-07 | US_ITS ---
EXAMINATION: US PELVIS CLINICAL INFORMATION: Deep endometriosis of ovary, unspecified ovary LMP 3 days ago COMPARISON: Pelvic ultrasound 05/02/2023, 03/16/2023, MRI pelvis 06/05/2023 TECHNIQUE: Ultrasound of the pelvis is performed using both transabdominal and transvaginal transducers along with Doppler. Transvaginal imaging is performed due to inadequate visualization transabdominally. FINDINGS: Uterus: The uterus is anteverted and measures 6.2 x 3.9 x 4.8 cm. 1.1 x 0.9 x 1.0 cm left lateral fundal pedunculated fibroid is without significant interval change. The endometrial thickness is 0.3 cm Adnexa: Both ovaries are visualized. There is normal color flow to the adnexa. There is no ovarian torsion. There is a small amount of free fluid within the cul-de-sac. Right ovary measures 2.5 x 1.5 x 2.1 cm. Volume 4.1 mL. 0.2 x 0.1 x 0.1 cm calcification is seen in the right ovary. Left ovary measures 2.9 x 2.4 x 3.0 cm cm. Volume 11.0 mL. 2.6 x 1.6 x 1.5 cm complex cyst with multiple internal echoes measured 2.3 x 1.9 x 2.3 cm on ultrasound of 05/03/2023 and 2.8 x 1.6 x 1.7 cm on pelvic ultrasound of 03/19/2023. Differences in size may be technical in origin. This may represent a hemorrhagic cyst or endometrioma. 2.3 x 1.6 x 2.5 cm cystic/tubular structure with a 0.4 cm solid vascular nodule could represent a complex parapelvic cyst versus hydrosalpinx. The 0.4 cm nodule previously measured 0.7 cm and was reported as avascular. US/US pelvic and transvaginal IMPRESSION: 1. Findings are compatible with left ovarian hemorrhagic cyst or endometrioma. 2. Findings could be compatible with tortuous left posterior adnexal hydrosalpinx versus left paraovarian cyst. This contains a 0.4 cm solid vascular nodule. 3. Small left lateral uterine fundal pedunculated fibroid.
== END 2023-08-07 16:23 | disposition home or self-care (01) ==
LOC: HO.US 16:22
PROVIDERS: PCP Internal Medicine; Visit Provider Advanced Practice Midwife
DX: R10.2 Pelvic and perineal pain (principal); N80.129 Deep endometriosis of ovary, unspecified ovary; N70.11 Chronic salpingitis; D21.9 Benign neoplasm of connective and other soft tissue, unspecified
CPT/HCPCS: 76830; 76856

== ENCOUNTER 2023-08-14 12:38 | Outpatient (AMB) | payer BC, SELFPAY ==
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
== END 2023-08-14 14:49 | disposition home or self-care (01) ==
LOC: HO.HWS 12:38
PROVIDERS: PCP Internal Medicine; Visit Provider Advanced Practice Midwife
DX: R10.2 Pelvic and perineal pain (principal); R93.89 Abnormal findings on diagnostic imaging of other specified body structures; N83.9 Noninflammatory disorder of ovary, fallopian tube and broad ligament, unspecified
CPT/HCPCS: 99212

== ENCOUNTER → 2023-08-14 12:38 | Outpatient (BNVA) | payer BC, SELFPAY | PROVIDERS: PCP Internal Medicine; Visit Provider Advanced Practice Midwife ==

== ENCOUNTER 2023-08-30 10:47 | Outpatient (AMB) | payer BC, SELFPAY ==
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
[2023-08-30 10:59] VITALS: BP 117/74; PULSE 94; BMI 34.0
== END 2023-08-30 12:44 | disposition home or self-care (01) ==
PROVIDERS: PCP Internal Medicine; Visit Provider Internal Medicine Gastroenterology
DX: R10.10 Upper abdominal pain, unspecified (principal); R19.7 Diarrhea, unspecified; R79.89 Other specified abnormal findings of blood chemistry; K29.80 Duodenitis without bleeding; K58.0 Irritable bowel syndrome with diarrhea; K21.9 Gastro-esophageal reflux disease without esophagitis; K27.9 Peptic ulcer, site unspecified, unspecified as acute or chronic, without hemorrhage or perforation
CPT/HCPCS: 99499

== ENCOUNTER → 2023-08-30 10:47 | Outpatient (BNVA) | payer BC, SELFPAY | PROVIDERS: PCP Internal Medicine; Visit Provider Internal Medicine Gastroenterology ==

== ENCOUNTER 2023-08-30 12:07 | Outpatient (REF) | payer BC, SELFPAY ==
[2023-09-04 15:01] LABS: H Pylori Breath Test Negative (Negative)
== END 2023-08-30 12:08 | disposition home or self-care (01) ==
LOC: HO.LNP 12:07
PROVIDERS: Visit Provider Internal Medicine Gastroenterology
DX: Z11.2 Encounter for screening for other bacterial diseases (principal)
CPT/HCPCS: 83013

== ENCOUNTER 2023-09-27 15:35 | Outpatient (AMB) | payer BC, SELFPAY ==
[2023-09-27 15:42] VITALS: BP 120/82; PULSE 94; BMI 34.9
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
== END 2023-09-27 16:11 | disposition home or self-care (01) ==
PROVIDERS: PCP Internal Medicine; Visit Provider Nurse Practitioner Family
DX: R00.0 Tachycardia, unspecified (principal); R42 Dizziness and giddiness; I10 Essential (primary) hypertension
CPT/HCPCS: 99213

== ENCOUNTER → 2023-09-27 15:35 | Outpatient (BNVA) | payer BC, SELFPAY | PROVIDERS: PCP Internal Medicine; Visit Provider Nurse Practitioner Family ==

== ENCOUNTER 2023-10-04 16:05 | Outpatient (AMB) | payer BC, SELFPAY ==
[2023-10-04 16:07] VITALS: BP 128/82; PULSE 92; O2SAT 99; BMI 34.6
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
== END 2023-10-04 16:52 | disposition home or self-care (01) ==
LOC: HO.HMGH 16:05
PROVIDERS: PCP Internal Medicine; Visit Provider Internal Medicine
DX: Z00.00 Encounter for general adult medical examination without abnormal findings (principal); K21.9 Gastro-esophageal reflux disease without esophagitis; E66.9 Obesity, unspecified; Z68.34 Body mass index [BMI] 34.0-34.9, adult; K58.0 Irritable bowel syndrome with diarrhea; D64.9 Anemia, unspecified; F41.1 Generalized anxiety disorder; L40.0 Psoriasis vulgaris; N80.129 Deep endometriosis of ovary, unspecified ovary
CPT/HCPCS: 99395

== ENCOUNTER 2023-11-15 10:42 | Outpatient (REF) | payer BC, SELFPAY ==
[2023-11-15 10:56] LABS: MANUAL DIFF FLAG NO
[2023-11-15 11:27] LABS: Basophils Percent Auto 0.4 % (0-2); Eosinophils Absolute Auto 0.2 X10*3/uL (0.0-0.4); Eosinophils Percent Auto 1.8 % (0-4); Hematocrit 37.8 % (37.0-47.0); Imm Gran Abs Auto 0.12 X10*3/uL (0.00-0.03); Imm Gran Pct Auto 1.1 % (0.0-0.4); Immature Retic Fraction 28.4 % (3.0-15.9); Lymphocytes Absolute Auto 2.8 X10*3/uL (1.2-4.9); Lymphocytes Percent Auto 26.4 % (20-40); Mean Corpuscular HGB Conc 31.7 g/dl (31.0-35.0); Mean Corpuscular Hemoglobin 23.4 pg (27.0-33.0); Mean Corpuscular Volume 73.7 fL (80.0-98.0); Monocytes Absolute Auto 0.7 X10*3/uL (0.1-1.2); Monocytes Percent Auto 6.3 % (2-11); Neutrophils Absolute Auto 6.9 x10*3/uL (2.0-8.3); Platelet Count 342 X10*3/uL (160-400); Red Blood Count 5.13 X10*6/uL (4.20-5.50); Retic HGB Equivalent 25.6 pg (30.0-35.0); Reticulocyte Percent 2.2 % (0.5-1.8); Reticulocytes Absolute 0.111 X10*6/uL (0.026-0.095); White Blood Count 10.8 X10*3/uL (4.8-10.8)
[2023-11-15 12:11] LABS: Alanine Aminotransferase 14 U/L (0-31); Albumin Level 4.1 g/dL (3.5-5.0); Alkaline Phosphatase 110 U/L (39-117); Anion Gap 14 (12-20); Aspartate Amino Transferase 26 U/L (5-31); Bilirubin Total 0.4 mg/dL (0.0-1.0); Blood Urea Nitrogen 11 mg/dL (9-16); Calcium 9.8 mg/dL (8.4-10.2); Carbon Dioxide 26 mmol/L (22-29); Chloride 103 mmol/L (96-108); Cholesterol 185 mg/dL (<200); Estimated Glomerular Filt Rate > 60; Glucose Random 94 mg/dL (60-115); HDL Cholesterol 36 mg/dL (>40); Iron 56 mcg/dL (30-160); LDL Cholesterol Calculated 103 mg/dL (<100); Percent Iron Saturation 25 % (15-50); Sodium 139 mmol/L (135-145); Total Iron Binding Capacity 228 mcg/dL (228-428); Triglycerides 233 mg/dL (<150); Unsaturated Iron Binding 172 ug/dL
[2023-11-15 12:14] LABS: Ferritin 110 ng/mL (10-122); Free T4 (Free Thyroxine) 1.15 ng/dL (0.71-1.85); Thyroid Stimulating Hormone 1.57 uIU/mL (0.32-4.0); Vitamin D 25-OH Total 36.3 ng/mL (>30)
[2023-11-15 14:56] LABS: Folate 9.8 ng/mL (> or = 4.0); Vitamin B12 481 pg/mL (200-900)
== END 2023-11-15 10:43 | disposition home or self-care (01) ==
LOC: HO.LAB 10:42
PROVIDERS: PCP Internal Medicine; Visit Provider Internal Medicine
DX: D64.9 Anemia, unspecified (principal); E78.00 Pure hypercholesterolemia, unspecified
CPT/HCPCS: 36415; 80053; 80061; 82306; 82607; 82728; 82746; 83540; 84439; 84443; 85025; 85045

== ENCOUNTER 2023-12-17 09:29 | Outpatient (AMB) | payer BC, SELFPAY ==
[2023-12-17 10:02] VITALS: BP 130/82; PULSE 100; O2SAT 98; BMI 35.1
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
== END 2023-12-17 10:46 | disposition home or self-care (01) ==
PROVIDERS: PCP Internal Medicine; Visit Provider Internal Medicine
DX: L30.9 Dermatitis, unspecified (principal)
CPT/HCPCS: 99213

== ENCOUNTER 2024-01-09 14:07 | Outpatient (AMB) | payer BC, SELFPAY ==
[2024-01-09 14:08] VITALS: BP 120/72; BMI 34.6
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
== END 2024-01-09 16:03 | disposition home or self-care (01) ==
PROVIDERS: PCP Internal Medicine; Visit Provider Advanced Practice Midwife
DX: R10.2 Pelvic and perineal pain (principal); Z01.419 Encounter for gynecological examination (general) (routine) without abnormal findings
CPT/HCPCS: 99395

== ENCOUNTER 2024-01-09 14:07 | Outpatient (REF) | payer BC, SELFPAY ==
[2024-01-09 17:22] LABS: Bacterial Vaginosis PCR NEGATIVE (Negative); Candida Group PCR NOT DETECTED (Not Detect); Candida glab krusei PCR NOT DETECTED (Not Detect); Trichomonas vaginalis PCR NOT DETECTED (Not Detect)
== END 2024-01-09 14:08 | disposition home or self-care (01) ==
LOC: HO.LNP 14:07
PROVIDERS: PCP Internal Medicine; Visit Provider Advanced Practice Midwife
DX: Z01.419 Encounter for gynecological examination (general) (routine) without abnormal findings (principal); R10.2 Pelvic and perineal pain
CPT/HCPCS: 0352U; 81003; 81025

== ENCOUNTER 2024-02-08 11:08 | Outpatient (AMB) | payer BC, SELFPAY ==
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
[2024-02-08 11:11] VITALS: BP 126/82; PULSE 95; O2SAT 98; BMI 34.0
== END 2024-02-08 11:35 | disposition home or self-care (01) ==
PROVIDERS: PCP Internal Medicine; Visit Provider Internal Medicine
DX: K21.9 Gastro-esophageal reflux disease without esophagitis (principal); E66.9 Obesity, unspecified; Z68.34 Body mass index [BMI] 34.0-34.9, adult; I10 Essential (primary) hypertension; F41.1 Generalized anxiety disorder; G43.909 Migraine, unspecified, not intractable, without status migrainosus; N80.9 Endometriosis, unspecified; R42 Dizziness and giddiness
CPT/HCPCS: 99214

== ENCOUNTER 2024-02-08 11:40 | Outpatient (REF) | payer BC, SELFPAY ==
[2024-02-08 11:52] LABS: MANUAL DIFF FLAG NO
[2024-02-08 12:40] LABS: Basophils Percent Auto 0.4 % (0-2); Eosinophils Absolute Auto 0.2 X10*3/uL (0.0-0.4); Eosinophils Percent Auto 1.9 % (0-4); Hematocrit 36.3 % (37.0-47.0); Hemoglobin 11.5 g/dl (12.0-16.0); Imm Gran Abs Auto 0.07 X10*3/uL (0.00-0.03); Imm Gran Pct Auto 0.8 % (0.0-0.4); Lymphocytes Absolute Auto 3.1 X10*3/uL (1.2-4.9); Lymphocytes Percent Auto 36.9 % (20-40); Mean Corpuscular HGB Conc 31.7 g/dl (31.0-35.0); Mean Corpuscular Hemoglobin 23.1 pg (27.0-33.0); Mean Corpuscular Volume 72.9 fL (80.0-98.0); Mean Platelet Volume 11.1 fL (9.4-12.3); Monocytes Absolute Auto 0.5 X10*3/uL (0.1-1.2); Monocytes Percent Auto 6.2 % (2-11); Neutrophils Absolute Auto 4.5 x10*3/uL (2.0-8.3); Neutrophils Percent Auto 53.8 % (45-73); Platelet Count 350 X10*3/uL (160-400); Red Blood Count 4.98 X10*6/uL (4.20-5.50); White Blood Count 8.4 X10*3/uL (4.8-10.8)
[2024-02-08 12:44] LABS: Appearance Urine Clear; Color Urine Dark Yellow; Glucose Urine UA Negative (Negative); Leukocyte Esterase Urine Negative (Negative); Nitrite Urine Negative (Negative); PH 6.5 (5.0-9.0); Specific Gravity - Urine 1.015 (1.005-1.025); Urine Blood Negative (Negative); Urine Ketones Negative (Negative); Urine Protein Negative (Neg-Trace)
[2024-02-08 13:18] LABS: Alanine Aminotransferase 10 U/L (0-31); Albumin Level 4.4 g/dL (3.5-5.0); Alkaline Phosphatase 88 U/L (39-117); Anion Gap 9 (12-20); Aspartate Amino Transferase 20 U/L (5-31); Bilirubin Total 0.4 mg/dL (0.0-1.0); Blood Urea Nitrogen 12 mg/dL (9-16); Calcium 9.8 mg/dL (8.4-10.2); Carbon Dioxide 27 mmol/L (22-29); Chloride 105 mmol/L (96-108); Estimated Glomerular Filt Rate > 60; Glucose Random 114 mg/dL (60-115); Potassium 3.4 mmol/L (3.3-5.1); Sodium 138 mmol/L (135-145)
[2024-02-08 13:52] LABS: Free T4 (Free Thyroxine) 0.88 ng/dL (0.71-1.85); Thyroid Stimulating Hormone 1.04 uIU/mL (0.32-4.0)
== END 2024-02-08 11:41 | disposition home or self-care (01) ==
LOC: HO.LAB 11:40
PROVIDERS: PCP Internal Medicine; Visit Provider Internal Medicine
DX: R30.0 Dysuria (principal); R42 Dizziness and giddiness
CPT/HCPCS: 36415; 80053; 81003; 84439; 84443; 85025

== ENCOUNTER 2024-04-08 08:31 | Day surgery (SDC) | payer BC, SELFPAY ==
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
[2024-04-08 12:24] LABS: UPreg QC Valid YES; Urine Pregnancy NEGATIVE (NEGATIVE)
[2024-04-08 12:28] VITALS: BP 138/92; PULSE 102; RESP 19; TEMP 36.9; O2SAT 99; BMI 33.2
[2024-04-08] MEDS: Lactated Ringers 1,000 ML 100 ML IVCONT (12:38)
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
--- NOTE | 2024-04-08 13:00 | W.PM.OPN ---
Operative Note Operative Note Date of Service: 04/08/24 Narrative: Procedure Description: EGD Indication: GERD, here for CANTU testing Anesthesia: MAC FLEXIBLE TRANSORAL UPPER GASTROINTESTINAL ENDOSCOPY UPPER ENDOSCOPY Consent: Indications for the procedure and potential complications of bleeding, perforation, reaction to medications and missed diagnosis were discussed with the patient and informed consent was obtained. Instrument: Olympus GIF H 190 J mid size upper endoscope Monitoring: Vital signs and clinical assessment, continuous EKG monitoring, Pulse oximetry, Carbon Dioxide monitoring and blood pressure monitoring were done throughout the procedure. Procedure: The patient was placed in the left lateral decubitis position and pre-procedure medications were administered and a bite block was placed. The endoscope was inserted into the mouth and advanced under direct vision to the third part of duodenum. A careful inspection was made as the upper endoscope was withdrawn including a retroflexed examination of the proximal stomach; Findings and interventions are described below. Findings: Larynx:normal Esophagus: GE junction at 35 cm, diaphragm hiatus at 35 cm, normal mucosa - bx taken from GEJ, distal and proximal esophagus Stomach: mild patchy erythema . Biopsies were obtained. Grade 2 flap valve on retroflexed examination of the cardia. Duodenum: Normal bulb and descending duodenum, bx taken CANTU was placed at 29 cm, initial pH 5.2 (off PPI for 1 week) Intervention: Biopsies as noted above, CANTU placement Impression/Findings: gastritis PLAN: 48 hr CANTU study --can restart PPI after that, can use zofran. GERD precautions
[2024-04-08 13:55] VITALS: BP 133/94; PULSE 123; RESP 16; TEMP 36.6; O2SAT 100
[2024-04-08 14:10] VITALS: BP 143/82; PULSE 120; RESP 16; O2SAT 100
[2024-04-08 14:25] VITALS: BP 154/98; PULSE 119; RESP 20; TEMP 36.6; O2SAT 100
== END 2024-04-08 14:52 | disposition home or self-care (01) ==
PROVIDERS: Nurse Practitioner; PCP Internal Medicine; Visit Provider Internal Medicine Gastroenterology
PROC: (CPT 43239; principal; 2024-04-08 13:30)
DX: K21.9 Gastro-esophageal reflux disease without esophagitis (principal); K29.80 Duodenitis without bleeding; K27.9 Peptic ulcer, site unspecified, unspecified as acute or chronic, without hemorrhage or perforation; K29.50 Unspecified chronic gastritis without bleeding; R14.0 Abdominal distension (gaseous); K44.9 Diaphragmatic hernia without obstruction or gangrene; K58.0 Irritable bowel syndrome with diarrhea; E55.9 Vitamin D deficiency, unspecified; R79.89 Other specified abnormal findings of blood chemistry; R03.0 Elevated blood-pressure reading, without diagnosis of hypertension; J45.909 Unspecified asthma, uncomplicated; D75.89 Other specified diseases of blood and blood-forming organs; Z79.899 Other long term (current) drug therapy; Z88.2 Allergy status to sulfonamides; Z88.8 Allergy status to other drugs, medicaments and biological substances
CPT/HCPCS: 43239; 81025; 88305; 88313; 88342; J2250; J2405; J2704

== ENCOUNTER → 2024-04-08 08:31 | Outpatient (BNV) | payer BC, SELFPAY ==
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
== END ==
PROVIDERS: PCP Internal Medicine; Visit Provider Internal Medicine Gastroenterology
DX: K21.9 Gastro-esophageal reflux disease without esophagitis (principal)
CPT/HCPCS: 43239; 91035

== ENCOUNTER 2024-04-10 15:32 | Outpatient (AMB) | payer BC, SELFPAY ==
[2024-04-10 15:45] VITALS: BP 140/82; PULSE 100; O2SAT 97; BMI 32.3
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
== END 2024-04-10 16:58 | disposition home or self-care (01) ==
PROVIDERS: PCP Internal Medicine; Visit Provider Internal Medicine
DX: K21.9 Gastro-esophageal reflux disease without esophagitis (principal); Z68.32 Body mass index [BMI] 32.0-32.9, adult; E66.9 Obesity, unspecified; D64.9 Anemia, unspecified; I10 Essential (primary) hypertension; F41.1 Generalized anxiety disorder; R42 Dizziness and giddiness
CPT/HCPCS: 99214

== ENCOUNTER 2024-04-16 06:59 | Outpatient (REF) | payer BC, SELFPAY ==
--- NOTE | ~2024-04-16 | XR_ITS ---
EXAMINATION: XR CHEST, 2 VIEWS CLINICAL INFORMATION: Chest pain after placement of Winter capsule. Check for Winter capsule in the esophagus. COMPARISON: 11/01/2022 TECHNIQUE: PA and lateral views of the chest were obtained. FINDINGS: A Winter capsule is evident within the midesophagus just below the level of the андрей. Lungs are clear. Cardiac and mediastinal contours are normal. No consolidation, pneumothorax, or pleural effusion. No pneumomediastinum. Osseous structures are normal. XR/XR chest 2V IMPRESSION: Winter capsule in the midesophagus. Electronically signed by: Nagi Sparks MD 04/17/2024 01:44 PM EDT
== END 2024-04-16 07:00 | disposition home or self-care (01) ==
LOC: HO.XRAY 06:59
PROVIDERS: PCP Internal Medicine; Visit Provider Internal Medicine Gastroenterology
DX: R07.89 Other chest pain (principal)
CPT/HCPCS: 71046

== ENCOUNTER 2024-04-18 09:01 | Day surgery (SDC) | payer BC, SELFPAY ==
[2024-04-18 09:31] VITALS: BMI 32.2
[2024-04-18 09:34] LABS: UPreg QC Valid YES; Urine Pregnancy NEGATIVE (NEGATIVE)
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
[2024-04-18] MEDS: Lactated Ringers 1,000 ML 100 ML IVCONT (09:47)
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
[2024-04-18 09:53] VITALS: BP 130/86; PULSE 110; RESP 18; TEMP 36.3; O2SAT 96
--- NOTE | 2024-04-18 10:22 | W.PM.OPN ---
Operative Note Operative Note Date of Service: 04/18/24 Narrative: Procedure Description: EGD Indication: Villanueva removal Anesthesia: MAC FLEXIBLE TRANSORAL UPPER GASTROINTESTINAL ENDOSCOPY UPPER ENDOSCOPY Consent: Indications for the procedure and potential complications of bleeding, perforation, reaction to medications and missed diagnosis were discussed with the patient and informed consent was obtained. Instrument: Olympus GIF H 190 J mid size upper endoscope Monitoring: Vital signs and clinical assessment, continuous EKG monitoring, Pulse oximetry, Carbon Dioxide monitoring and blood pressure monitoring were done throughout the procedure. Procedure: The patient was placed in the left lateral decubitis position and pre-procedure medications were administered and a bite block was placed. The endoscope was inserted into the mouth and advanced under direct vision to the third part of duodenum. A careful inspection was made as the upper endoscope was withdrawn including a retroflexed examination of the proximal stomach; Findings and interventions are described below. Findings: Larynx:normal Esophagus: GE junction at 35 cm, diaphragm hiatus at 35 cm, normal mucosa - villanueva capsule noted and removed with cold snare and gentle traction-probe then retrieved with net Stomach: mild patchy erythema. Grade 2 flap valve on retroflexed examination of the cardia. Duodenum: Normal bulb and descending duodenum Intervention: removal and retrieval of villanueva capsule Impression/Findings: gastritis PLAN: magic mouthwash for 1 week GERD precautions
[2024-04-18 10:27] VITALS: BP 126/85; PULSE 105; RESP 16; TEMP 36.1; O2SAT 100
[2024-04-18 10:35] VITALS: BP 135/95; PULSE 111; RESP 16; O2SAT 99
--- NOTE | 2024-04-18 10:36 | HO.POSTANES ---
Post Anesthesia Evaluation Post Anesthesia Evaluation Date of Service: 04/18/24 Vital Signs: Vital Signs Temp Pulse Resp BP Pulse Ox O2 Del Method 04/18/24 10:27 97 F 105 H 16 126/85 100 Room Air 04/18/24 09:53 97.4 F 110 H 18 130/86 96 Room Air Anesthesia: Monitored Mental Status: Awake Pain Control: Satisfactory Nausea/Vomiting: None Hydration: Adequate Anesthesia-Related Issues: No Anes. Related Issues
[2024-04-18 10:50] VITALS: BP 145/105; PULSE 109; RESP 16; O2SAT 100
[2024-04-18] MEDS: Mag&Al/Sim/Diphenhyd/Lidocaine 10 ML ORAL.SUSP PO (11:04)
[2024-04-18 11:05] VITALS: BP 148/88; PULSE 105; RESP 16; TEMP 36.1; O2SAT 100
== END 2024-04-18 12:45 | disposition home or self-care (01) ==
PROVIDERS: Anesthesiology; PCP Internal Medicine; Visit Provider Internal Medicine Gastroenterology
PROC: 0DJ08ZZ Inspection of Upper Intestinal Tract, Via Natural or Artificial Opening Endoscopic (ICD-10-PCS; CPT 43235; principal; 2024-04-18 12:50)
DX: Z45.89 Encounter for adjustment and management of other implanted devices (principal); Z87.821 Personal history of retained foreign body fully removed; K29.80 Duodenitis without bleeding; K44.9 Diaphragmatic hernia without obstruction or gangrene; Z79.899 Other long term (current) drug therapy; Z88.2 Allergy status to sulfonamides; Z88.8 Allergy status to other drugs, medicaments and biological substances
CPT/HCPCS: 43247; 43251; 81025; J2704

== ENCOUNTER → 2024-04-18 09:01 | Outpatient (BNV) | payer BC, SELFPAY | PROVIDERS: PCP Internal Medicine; Visit Provider Internal Medicine Gastroenterology | DX: K29.70 Gastritis, unspecified, without bleeding (principal) | CPT/HCPCS: 43247 ==

== ENCOUNTER 2024-04-24 08:45 | Outpatient (AMB) | payer BC, SELFPAY ==
[2024-04-24 08:53] VITALS: BP 121/81; PULSE 100; BMI 32.5
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
== END 2024-04-24 09:47 | disposition home or self-care (01) ==
PROVIDERS: PCP Internal Medicine; Visit Provider Internal Medicine Gastroenterology
DX: K27.9 Peptic ulcer, site unspecified, unspecified as acute or chronic, without hemorrhage or perforation (principal); K21.9 Gastro-esophageal reflux disease without esophagitis; K58.0 Irritable bowel syndrome with diarrhea; K29.80 Duodenitis without bleeding; R79.89 Other specified abnormal findings of blood chemistry; R07.89 Other chest pain
CPT/HCPCS: 99499

== ENCOUNTER → 2024-04-24 08:45 | Outpatient (BNVA) | payer BC, SELFPAY | PROVIDERS: PCP Internal Medicine; Visit Provider Internal Medicine Gastroenterology ==

== ENCOUNTER 2024-05-21 11:51 | Outpatient (AMB) | payer BC, SELFPAY ==
[2024-05-21 11:59] VITALS: BP 122/84; PULSE 101; TEMP 36.7; O2SAT 98; BMI 32.3
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
== END 2024-05-21 13:12 | disposition home or self-care (01) ==
PROVIDERS: PCP Internal Medicine; Visit Provider Physician Assistant
DX: M54.9 Dorsalgia, unspecified (principal)

== ENCOUNTER → 2024-05-21 11:51 | Outpatient (BNVA) | payer BC, SELFPAY | PROVIDERS: PCP Internal Medicine | DX: M54.9 Dorsalgia, unspecified (principal) ==

== ENCOUNTER 2024-05-21 12:33 | Outpatient (REF) | payer BC, SELFPAY ==
--- NOTE | ~2024-05-21 | XR_ITS ---
EXAMINATION: XR CHEST CLINICAL INFORMATION: Chest pain on breathing COMPARISON: Chest radiograph 04/16/2024 TECHNIQUE: 2 views of the chest were obtained. FINDINGS: The lungs are adequately expanded. No focal consolidation. No pleural effusions or pneumothorax. The cardiomediastinal silhouette is within normal limits. No acute osseous abnormality. XR/XR chest 2V IMPRESSION: No acute pulmonary disease. Electronically signed by: Mckay Claros MD 05/21/2024 02:57 PM EDT
== END 2024-05-21 12:34 | disposition home or self-care (01) ==
LOC: HO.HMGCX 12:33
PROVIDERS: PCP Internal Medicine; Visit Provider Physician Assistant
DX: R07.1 Chest pain on breathing (principal); M54.9 Dorsalgia, unspecified; R07.89 Other chest pain
CPT/HCPCS: 71046

== ENCOUNTER → 2024-06-26 07:48 | Outpatient (BNVA) | payer BC, SELFPAY | PROVIDERS: PCP Internal Medicine; Visit Provider Internal Medicine Gastroenterology ==

== ENCOUNTER → 2024-07-01 08:14 | Outpatient (REF) | payer BC, SELFPAY ==
--- NOTE | 2024-07-01 08:17 | CA_ITS ---
Acquisition Time: 2024-07-01 08:23:15 Total Exercise Time: 00:07:54 Test Indications: CHEST PAIN Medications: Protocol: ELIGIO Max HR: 181 BPM 96% of Pred: 188 BPM Max BP: 154/070 mmHG Max Work Load: 9.9 METS Exercise stress test with exercise 7 mins 54 secs of Eligio Protocol, achieving 96% MPHr, with chest tightness 3/10 at baseline that got worse to 6/10 with exercise, with isolated PAC, with normotensive response to exercise. Without EKG changes meeting criteria for ischemia. In recovery, chest tightness returned to baseline. Test reviewed with Dr. Sol. Since her discomfort increased with physical activity, will order a stress echocardiogram for further evaluation. Referred By: Brittny Gilmore Overread By: BRITTNY GILMORE
== END ==
LOC: HO.CARD 08:14
PROVIDERS: PCP Internal Medicine; Visit Provider Nurse Practitioner Family
DX: R07.89 Other chest pain (principal)
CPT/HCPCS: 93017

== ENCOUNTER → 2024-07-01 08:17 | Outpatient (BNV) | payer BC, SELFPAY | PROVIDERS: PCP Internal Medicine; Visit Provider Nurse Practitioner Family | DX: R07.9 Chest pain, unspecified (principal); I49.1 Atrial premature depolarization | CPT/HCPCS: 93016; 93018 ==

== ENCOUNTER 2024-07-08 11:33 | Emergency (ER) | payer BC, SELFPAY ==
--- NOTE | ~2024-07-08 | XR_ITS ---
EXAMINATION: XR ABDOMEN KUB CLINICAL INDICATION: Constipation. COMPARISON: None available. TECHNIQUE: AP view of the abdomen. FINDINGS: Fecal material is evident throughout the colon but no dilated large or small bowel loops are evident. There are no radiopaque calculi. Osseous structures are intact. XR/XR KUB IMPRESSION: Fecal material throughout the colon compatible with constipation. Electronically signed by: Cuba Kumari MD 07/08/2024 01:04 PM KIERA
[2024-07-08 12:13] VITALS: BP 129/95; PULSE 90; RESP 16; TEMP 37; O2SAT 100; BMI 32.3
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
[2024-07-08 14:03] LABS: MANUAL DIFF FLAG NO
[2024-07-08 14:06] LABS: Basophils Percent Auto 0.4 % (0-2); Eosinophils Absolute Auto 0.1 X10*3/uL (0.0-0.4); Eosinophils Percent Auto 0.8 % (0-4); Hematocrit 39.6 % (37.0-47.0); Hemoglobin 12.7 g/dl (12.0-16.0); Imm Gran Abs Auto 0.04 X10*3/uL (0.00-0.03); Imm Gran Pct Auto 0.5 % (0.0-0.4); Lymphocytes Absolute Auto 2.1 X10*3/uL (1.2-4.9); Lymphocytes Percent Auto 27.9 % (20-40); Mean Corpuscular HGB Conc 32.1 g/dl (31.0-35.0); Mean Corpuscular Hemoglobin 23.7 pg (27.0-33.0); Mean Platelet Volume 10.2 fL (9.4-12.3); Monocytes Absolute Auto 0.6 X10*3/uL (0.1-1.2); Monocytes Percent Auto 7.5 % (2-11); Neutrophils Absolute Auto 4.7 x10*3/uL (2.0-8.3); Neutrophils Percent Auto 62.9 % (45-73); Platelet Count 330 X10*3/uL (160-400); Red Blood Count 5.35 X10*6/uL (4.20-5.50); Red Cell Distribution Width 19.4 % (11.0-16.0); White Blood Count 7.5 X10*3/uL (4.8-10.8)
[2024-07-08 14:26] LABS: Alanine Aminotransferase 12 U/L (0-31); Albumin Level 4.6 g/dL (3.5-5.0); Alkaline Phosphatase 97 U/L (39-117); Anion Gap 11 (12-20); Aspartate Amino Transferase 25 U/L (5-31); Bilirubin Total 0.5 mg/dL (0.0-1.0); Blood Urea Nitrogen 8 mg/dL (9-16); Calcium 9.6 mg/dL (8.4-10.2); Carbon Dioxide 28 mmol/L (22-29); Chloride 106 mmol/L (96-108); Creatinine Clr Calc Pharmacy 89.5; Estimated Glomerular Filt Rate > 60; Glucose Random 112 mg/dL (60-115); HCG Quantitative < 2 mIU/mL; Potassium 3.6 mmol/L (3.3-5.1); Sodium 141 mmol/L (135-145); Total Protein 8.4 g/dL (6.5-8.0)
[2024-07-08 15:37] LABS: Appearance Urine Clear; Color Urine Yellow; Glucose Urine UA Negative (Negative); Leukocyte Esterase Urine Trace (Negative); Nitrite Urine Negative (Negative); Specific Gravity - Urine <= 1.005 (1.005-1.025); UMIC TRIGGER UACC YES; Urine Blood Negative (Negative); Urine Ketones Negative (Negative); Urine Protein Negative (Neg-Trace)
[2024-07-08 15:42] LABS: Bacteria Urine None Seen (None Seen); Hyaline Casts Urine 0-2 /LPF (0-2); RBC Urine 0-2 /HPF (0-2); Squamous Epithelial Cell Urine 0-2 /HPF (0-2); WBC Urine 0-5 /HPF (0-5)
== END 2024-07-08 18:23 | disposition left against medical advice (07) ==
LOC: HO.ED 18:17
PROVIDERS: Registered Nurse Emergency; Emergency Provider Emergency Medicine; PCP Internal Medicine
DX: R10.9 Unspecified abdominal pain (principal); Z53.21 Procedure and treatment not carried out due to patient leaving prior to being seen by health care provider
CPT/HCPCS: 36415; 74018; 80053; 81001; 84702; 85025; 99281; 99282; 99283

== ENCOUNTER → 2024-07-17 08:33 | Outpatient (BNVA) | payer BC, SELFPAY | PROVIDERS: PCP Internal Medicine; Visit Provider Internal Medicine Gastroenterology ==

== ENCOUNTER → 2024-08-13 10:47 | Outpatient (REF) | payer BC, SELFPAY ==
--- NOTE | 2024-08-13 10:50 | CA_ITS ---
Acquisition Time: 2024-08-13 11:02:30 Total Exercise Time: 00:06:00 Test Indications: ABN.STRESS TEST. CP,ATYPICAL Medications: Protocol: ELIGIO Max HR: 196 BPM 104% of Pred: 188 BPM Max BP: 138/084 mmHG Max Work Load: 7.0 METS Exercise Stress Test with exercise 6 mins of Eligio Protocol, achieving 97% MPHR, with reports of dizziness and squeezing chest pain 4/10 , without any arrythmias, with normotensive response to exercise. Without EKG changes meeting criteria for ischemia. Echo images obtained by tech at rest and post peak exercise. Definity contrast used. Test reviewed with Dr. Duong. Te Referred By: Brittny Gilmore Overread By:
== END ==
LOC: HO.CARD 10:47
PROVIDERS: PCP Internal Medicine; Visit Provider Nurse Practitioner Family
DX: R07.89 Other chest pain (principal); R94.39 Abnormal result of other cardiovascular function study
CPT/HCPCS: 93350; Q9957

== ENCOUNTER → 2024-08-13 10:50 | Outpatient (BNV) | payer BC, SELFPAY | PROVIDERS: PCP Internal Medicine; Visit Provider Internal Medicine | DX: R07.9 Chest pain, unspecified (principal); R42 Dizziness and giddiness | CPT/HCPCS: 93351; 93352 ==

== ENCOUNTER 2024-09-17 11:16 | Outpatient (AMB) | payer BC, SELFPAY ==
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
[2024-09-17 13:26] VITALS: BP 118/80; PULSE 99; TEMP 36.7; O2SAT 99
== END 2024-09-17 14:07 | disposition home or self-care (01) ==
PROVIDERS: PCP Internal Medicine; Visit Provider Physician Assistant
DX: N76.0 Acute vaginitis (principal); Z13.9 Encounter for screening, unspecified

== ENCOUNTER 2024-09-17 11:16 | Outpatient (REF) | payer BC, SELFPAY ==
[2024-09-18 12:45] LABS: Bacterial Vaginosis PCR NEGATIVE (Negative); Candida Group PCR NOT DETECTED (Not Detect); Candida glab krusei PCR NOT DETECTED (Not Detect); Trichomonas vaginalis PCR NOT DETECTED (Not Detect)
== END 2024-09-17 11:17 | disposition home or self-care (01) ==
LOC: HO.LAB 11:16
PROVIDERS: PCP Internal Medicine; Visit Provider Physician Assistant
DX: N76.0 Acute vaginitis (principal); Z13.9 Encounter for screening, unspecified
CPT/HCPCS: 81003; 81515

== ENCOUNTER 2024-10-09 14:35 | Outpatient (AMB) | payer BC, SELFPAY ==
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
[2024-10-09 15:08] VITALS: BP 152/80; PULSE 91; TEMP 36.4; O2SAT 99; BMI 30.7
[2024-10-09 15:35] VITALS: BP 140/90
== END 2024-10-09 16:03 | disposition home or self-care (01) ==
PROVIDERS: PCP Internal Medicine; Visit Provider Internal Medicine
DX: Z00.00 Encounter for general adult medical examination without abnormal findings (principal); K21.9 Gastro-esophageal reflux disease without esophagitis; E66.9 Obesity, unspecified; Z68.30 Body mass index [BMI] 30.0-30.9, adult; G43.909 Migraine, unspecified, not intractable, without status migrainosus; F41.1 Generalized anxiety disorder; K59.09 Other constipation; N80.9 Endometriosis, unspecified

== ENCOUNTER → 2024-10-09 14:36 | Outpatient (BNVA) | payer BC, SELFPAY | PROVIDERS: PCP Internal Medicine; Visit Provider Internal Medicine | DX: Z00.00 Encounter for general adult medical examination without abnormal findings (principal); K21.9 Gastro-esophageal reflux disease without esophagitis; E66.9 Obesity, unspecified; Z68.30 Body mass index [BMI] 30.0-30.9, adult; G43.909 Migraine, unspecified, not intractable, without status migrainosus; F41.1 Generalized anxiety disorder; K59.09 Other constipation; N80.9 Endometriosis, unspecified; Z79.899 Other long term (current) drug therapy | CPT/HCPCS: 96127 ==

== ENCOUNTER 2024-10-09 16:11 | Outpatient (REF) | payer BC, SELFPAY ==
[2024-10-09 16:36] LABS: MANUAL DIFF FLAG NO
[2024-10-09 17:13] LABS: Basophils Percent Auto 0.2 % (0-2); Eosinophils Absolute Auto 0.1 X10*3/uL (0.0-0.4); Eosinophils Percent Auto 0.9 % (0-4); Hematocrit 38.4 % (37.0-47.0); Imm Gran Abs Auto 0.05 X10*3/uL (0.00-0.03); Imm Gran Pct Auto 0.6 % (0.0-0.4); Lymphocytes Absolute Auto 3.3 X10*3/uL (1.2-4.9); Lymphocytes Percent Auto 36.5 % (20-40); Mean Corpuscular HGB Conc 31.3 g/dl (31.0-35.0); Mean Corpuscular Hemoglobin 23.4 pg (27.0-33.0); Mean Corpuscular Volume 74.9 fL (80.0-98.0); Mean Platelet Volume 11.3 fL (9.4-12.3); Monocytes Absolute Auto 0.7 X10*3/uL (0.1-1.2); Monocytes Percent Auto 7.5 % (2-11); Neutrophils Absolute Auto 4.9 x10*3/uL (2.0-8.3); Neutrophils Percent Auto 54.3 % (45-73); Platelet Count 334 X10*3/uL (160-400); Red Blood Count 5.13 X10*6/uL (4.20-5.50); Red Cell Distribution Width 18.9 % (11.0-16.0)
[2024-10-09 17:28] LABS: Alanine Aminotransferase 11 U/L (0-31); Albumin Level 4.4 g/dL (3.5-5.0); Alkaline Phosphatase 84 U/L (39-117); Aspartate Amino Transferase 23 U/L (5-31); Bilirubin Direct 0.2 mg/dL (0.0-0.5); Bilirubin Total 0.4 mg/dL (0.0-1.0); Total Protein 8.4 g/dL (6.5-8.0)
[2024-10-09 18:05] LABS: Folate 14.4 ng/mL (> or = 4.0); Vitamin B12 349 pg/mL (200-900)
[2024-10-17 17:38] LABS: Histamine Plasma 23.5 ng/mL (< OR = 1.8)
== END 2024-10-09 16:12 | disposition home or self-care (01) ==
LOC: HO.LAB 16:11
PROVIDERS: PCP Internal Medicine; Visit Provider Internal Medicine Gastroenterology
DX: R10.10 Upper abdominal pain, unspecified (principal)
CPT/HCPCS: 36415; 80076; 82607; 82746; 83088; 83520; 84150; 85025

== ENCOUNTER → 2024-10-24 12:14 | Outpatient (REF) | payer BC, SELFPAY ==
--- NOTE | 2024-10-24 12:19 | ECG_ITS ---
Test Reason : chest pain Blood Pressure : */* mmHG Vent. Rate : 97 BPM Atrial Rate : 97 BPM P-R Int : 134 ms QRS Dur : 80 ms QT Int : 344 ms P-R-T Axes : 24 30 34 degrees QTcB Int : 436 ms Normal sinus rhythm Normal ECG When compared with ECG of 01-Nov-2022 18:53, Vent. rate has decreased by 48 bpm Referred By: Royer Moss Electronically Signed By: Leeroy Carr
== END ==
LOC: HO.CARD 12:14
PROVIDERS: PCP Internal Medicine; Visit Provider Internal Medicine Gastroenterology
DX: R07.89 Other chest pain (principal)
CPT/HCPCS: 93005

== ENCOUNTER → 2024-10-24 12:19 | Outpatient (BNV) | payer BC, SELFPAY | PROVIDERS: PCP Internal Medicine; Visit Provider Internal Medicine Cardiovascular Disease | DX: R07.9 Chest pain, unspecified (principal) | CPT/HCPCS: 93010 ==

== ENCOUNTER 2024-11-13 08:53 | Outpatient (AMB) | payer BC, SELFPAY ==
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
[2024-11-13 09:03] VITALS: BP 127/82; PULSE 92; O2SAT 99; BMI 31.2
== END 2024-11-13 09:53 | disposition home or self-care (01) ==
LOC: HO.HGI 08:54
PROVIDERS: PCP Internal Medicine; Visit Provider Internal Medicine Gastroenterology
DX: K27.9 Peptic ulcer, site unspecified, unspecified as acute or chronic, without hemorrhage or perforation (principal); B96.81 Helicobacter pylori [H. pylori] as the cause of diseases classified elsewhere; K21.9 Gastro-esophageal reflux disease without esophagitis; K58.0 Irritable bowel syndrome with diarrhea; R10.10 Upper abdominal pain, unspecified; R79.89 Other specified abnormal findings of blood chemistry; R19.7 Diarrhea, unspecified; K59.09 Other constipation; R13.14 Dysphagia, pharyngoesophageal phase
CPT/HCPCS: 99214

== ENCOUNTER 2024-11-21 09:25 | Outpatient (REF) | payer BC, SELFPAY ==
--- NOTE | ~2024-11-21 | FL_ITS ---
EXAMINATION: XR FLUOROSCOPY ESOPHAGRAM CLINICAL INFORMATION: Dysphagia, pharyngeal esophageal phase. Patient complaining of episodic esophageal spasm with solid food getting stuck in esophagus. COMPARISON: None TECHNIQUE: Fluoroscopic air contrast upper GI examination was performed utilizing standard techniques with thin and thick barium and effervescent granules. Numerous spot images were obtained. Several fluoroscopic image hold cine sequences were also obtained. FINDINGS: UPPER GI SERIES: Lateral cine images of the oropharynx and hypopharynx demonstrate normal swallow mechanism with normal epiglottic inversion and soft palate elevation. No laryngeal penetration, glottic or subglottic aspiration identified. No nasopharyngeal reflux present. Hypopharyngeal structures appear normal without evidence of mass or diverticulum. There was no significant cricopharyngeal achalasia. Dual and single contrast images of the esophagus demonstrate normal caliber, contour, and mucosal pattern. No evidence of stricture, mass, or ulcerations identified. Esophageal peristalsis is mildly to moderately disordered. Small type I hiatus hernia present. There is episodic gastroesophageal reflux identified to the level of the thoracic inlet. Dual contrast and single contrast images of the stomach demonstrated normal contour and gastric rugal fold pattern, without evidence of mass, mucosal abnormality, or ulcer. Contrast freely passed into the gastric antrum and duodenal bulb without delay. Single and air-contrast images of the duodenal bulb demonstrate no abnormality. The duodenal sweep has a normal appearance, course, and mucosal fold appearance. FLUOROSCOPY TIME: 2 minutes, 30 seconds Number of Spot Images:12 Number of cines obtained: 13 DOSE AREA PRODUCT: 2972 uGy-m2 (microgray-meter squared) FL/FL barium swallow with air IMPRESSION: 1. Mild to moderately disordered esophageal motility. No gross esophageal spasm identified during the course of the exam. 2. Small type I hiatus hernia. 3. Episodic gastroesophageal reflux identified to the level of the thoracic inlet. 4. Normal-appearing stomach and duodenum. Electronically signed by: Nagi Tracy MD 11/21/2024 10:42 AM EDT
== END 2024-11-21 09:26 | disposition home or self-care (01) ==
LOC: HO.XRAY 09:25
PROVIDERS: PCP Internal Medicine; Visit Provider Internal Medicine Gastroenterology
DX: R13.14 Dysphagia, pharyngoesophageal phase (principal)
CPT/HCPCS: 74221

== ENCOUNTER → 2024-11-21 09:26 | Outpatient (BNV) | payer BC, SELFPAY | PROVIDERS: PCP Internal Medicine; Visit Provider Radiology Diagnostic Radiology | DX: R13.10 Dysphagia, unspecified (principal) | CPT/HCPCS: 74221 ==

== ENCOUNTER 2024-12-30 10:19 | Outpatient (AMB) | payer BC, SELFPAY ==
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
[2024-12-30 10:27] VITALS: BP 128/88; PULSE 84; TEMP 36.2; O2SAT 99; BMI 31.6
== END 2024-12-30 10:51 | disposition home or self-care (01) ==
LOC: HO.HMCH 10:19
PROVIDERS: PCP Internal Medicine; Visit Provider Physician Assistant
DX: H66.001 Acute suppurative otitis media without spontaneous rupture of ear drum, right ear (principal)

== ENCOUNTER → 2024-12-30 10:19 | Outpatient (BNVA) | payer BC, SELFPAY | PROVIDERS: PCP Internal Medicine; Visit Provider Physician Assistant | DX: H66.001 Acute suppurative otitis media without spontaneous rupture of ear drum, right ear (principal) | CPT/HCPCS: 96127 ==

== ENCOUNTER 2025-01-15 12:22 | Outpatient (REF) | payer BC, SELFPAY ==
[2025-01-15 13:12] LABS: CDiff Gene PCR NEGATIVE (Negative)
== END 2025-01-15 12:23 | disposition home or self-care (01) ==
LOC: HO.LNP 12:22
PROVIDERS: Visit Provider Internal Medicine Gastroenterology
DX: R19.7 Diarrhea, unspecified (principal)
CPT/HCPCS: 87493

== ENCOUNTER 2025-02-03 17:12 | Emergency (ER) | payer BC, SELFPAY ==
--- NOTE | 2025-02-03 | ECG_ITS ---
Test Reason : chest pain/numbness Blood Pressure : */* mmHG Vent. Rate : 100 BPM Atrial Rate : 100 BPM P-R Int : 134 ms QRS Dur : 74 ms QT Int : 342 ms P-R-T Axes : 28 46 31 degrees QTcB Int : 441 ms Normal sinus rhythm Normal ECG When compared with ECG of 24-Oct-2024 12:17, No significant change was found Referred By: Generic ED Physician Electronically Signed By: MATHEUS WATSON MD
--- NOTE | ~2025-02-03 | CT_ITS ---
CLINICAL HISTORY: CP, sob CT angiography chest with contrast. 3D Postprocessing. Comparison: None Findings: Normal heart size. No pericardial effusion. Normal caliber thoracic aorta. No findings of aortic dissection. No threshold enlarged thoracic lymph node by CT size criteria. Normal diameter main pulmonary trunk. No pulmonary artery filling defect. Lungs and pleural spaces clear. No acute finding in the partially visualized upper abdomen. No acute or suspicious bone finding. IMPRESSION: 1. No pulmonary embolism or other acute finding in the chest. This document has been electronically signed by: Quique Hou MD on 02/03/2025 22:59:41
--- NOTE | ~2025-02-03 | XR_ITS ---
CLINICAL HISTORY: chest pain, palpitations 1 view chest x-ray Comparison: None Findings: No consolidation or effusion. Heart size is normal. No acute fracture. IMPRESSION: 1. No acute findings. This document has been electronically signed by: Bonita Gutierrez MD on 02/03/2025 19:12:02
[2025-02-03 17:29] LABS: MANUAL DIFF FLAG NO
[2025-02-03 17:43] LABS: Anion Gap 15 (12-20); Blood Urea Nitrogen 10 mg/dL (9-16); Carbon Dioxide 23 mmol/L (22-29); Chloride 106 mmol/L (96-108); Estimated Glomerular Filt Rate > 60; Glucose Random 122 mg/dL (60-115); Potassium 3.5 mmol/L (3.3-5.1); Sodium 140 mmol/L (135-145)
[2025-02-03 17:54] LABS: Troponin-I High Sensitivity < 2.7 ng/L (<3.5-17.0)
[2025-02-03 17:57] LABS: Basophils Percent Auto 0.4 % (0-2); Eosinophils Percent Auto 0.4 % (0-4); Hematocrit 40.7 % (37.0-47.0); Hemoglobin 13.2 g/dl (12.0-16.0); Imm Gran Abs Auto 0.06 X10*3/uL (0.00-0.03); Imm Gran Pct Auto 0.5 % (0.0-0.4); Lymphocytes Absolute Auto 2.6 X10*3/uL (1.2-4.9); Lymphocytes Percent Auto 22.8 % (20-40); Mean Corpuscular HGB Conc 32.4 g/dl (31.0-35.0); Mean Corpuscular Hemoglobin 23.7 pg (27.0-33.0); Mean Corpuscular Volume 73.1 fL (80.0-98.0); Mean Platelet Volume 10.7 fL (9.4-12.3); Monocytes Absolute Auto 0.7 X10*3/uL (0.1-1.2); Monocytes Percent Auto 5.8 % (2-11); Neutrophils Percent Auto 70.1 % (45-73); Platelet Count 330 X10*3/uL (160-400); Red Blood Count 5.57 X10*6/uL (4.20-5.50); Red Cell Distribution Width 18.6 % (11.0-16.0); White Blood Count 11.4 X10*3/uL (4.8-10.8)
[2025-02-03 18:13] VITALS: BP 151/97; PULSE 104; RESP 20; TEMP 36.3; O2SAT 99; BMI 31.4
[2025-02-03 19:39] LABS: Prothrombin Time 11.8 SEC (10.9-12.4)
[2025-02-03 19:41] LABS: D Dimer High Sensitivity 333 NG/ML
[2025-02-03 19:48] LABS: B Type Natriuretic Peptide 16 pg/mL (<100)
[2025-02-03 19:52] LABS: Troponin-I High Sensitivity 3.7 ng/L (<3.5-17.0)
[2025-02-03 20:21] VITALS: BP 144/101; PULSE 110; RESP 16; TEMP 37.1; O2SAT 100
[2025-02-03 20:23] VITALS: BP 132/91
[2025-02-03 20:54] LABS: HCG Quantitative < 2 mIU/mL
[2025-02-03] MEDS: iohexoL 350 MG/ML 100 ML INFUS..BTL 65 ML IV (21:34)
[2025-02-03 21:58] VITALS: BP 135/92; PULSE 120; RESP 16; TEMP 36.8; O2SAT 98
[2025-02-03] MEDS: diazePAM 10 MG/2 ML CARTRIDGE 5 MG IVPUSH (22:21)
[2025-02-03 23:04] VITALS: BP 144/100; PULSE 105; RESP 16; O2SAT 100
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
--- NOTE | 2025-02-03 23:56 | PC.NURSE ---
assumed care of patient at 23:15. report received from Melissa DAILEY
[2025-02-03 23:57] VITALS: BP 138/93; PULSE 100; RESP 18; TEMP 36.8; O2SAT 100
[2025-02-04 00:03] VITALS: BP 138/93; PULSE 100; RESP 18; TEMP 36.8; O2SAT 100
== END 2025-02-04 00:04 | disposition home or self-care (01) ==
PROVIDERS: Physician Assistant Medical; Emergency Provider Emergency Medicine Emergency Medical Services; PCP Internal Medicine
DX: R07.89 Other chest pain (principal); R06.02 Shortness of breath; M79.10 Myalgia, unspecified site; R10.2 Pelvic and perineal pain; R20.0 Anesthesia of skin; Z79.899 Other long term (current) drug therapy
CPT/HCPCS: 36415; 71045; 71275; 80048; 83880; 84484; 84702; 85025; 85379; 85610; 93005; 96374; 99284; 99285; J3360; Q9967

== ENCOUNTER → 2025-02-03 17:19 | Outpatient (BNV) | payer BC, SELFPAY | PROVIDERS: Emergency Provider Emergency Medicine Emergency Medical Services; PCP Internal Medicine; Visit Provider Internal Medicine Cardiovascular Disease | DX: R07.9 Chest pain, unspecified (principal); R20.2 Paresthesia of skin | CPT/HCPCS: 93010 ==

== ENCOUNTER → 2025-02-03 17:54 | Outpatient (BNV) | payer BC, SELFPAY | PROVIDERS: PCP Internal Medicine; Visit Provider Student in an Organized Health Care Education/Training Program | DX: R07.9 Chest pain, unspecified (principal); R06.02 Shortness of breath | CPT/HCPCS: 71045; 71275 ==

== ENCOUNTER 2025-02-21 10:09 | Outpatient (REF) | payer BC, SELFPAY ==
[2025-02-21 12:40] LABS: Folate 12.4 ng/mL (> or = 4.0)
[2025-03-05 16:18] LABS: Histamine Plasma >28.6 ng/mL (< OR = 1.8)
== END 2025-02-21 10:10 | disposition home or self-care (01) ==
LOC: HO.LAB 10:09
PROVIDERS: PCP Internal Medicine; Visit Provider Internal Medicine Gastroenterology
DX: D89.40 Mast cell activation, unspecified (principal)
CPT/HCPCS: 36415; 82746; 83088; 83520

== ENCOUNTER 2025-04-23 08:42 | Outpatient (AMB) | payer BC, SELFPAY ==
--- OUTSIDE RECORDS SUMMARY | 2022-05-16 | XMS_ITS | Encounter Summary ---
Author Organization [facility] Address [address] [facility] [address] [place] [address] Phone Care Team Providers Care Central Office Operator Name Role Phone Unavailable Primary Care Provider Unavailabl e Encounter Details Date Type Department Care Team (Late st Contact Info) Description 05/16/2022 Hospital Encounter [facility] [address] [place] [phone] Amador Osullivan MD [address] [place] [phone] [email or web address] Social History Tobacco Use Types Packs/Day [...] 1:00 PM EST Telemedicine [facility] Main [place] [address] [facility] [address] [place] [address] Amador Osullivan MD [address] [place] [phone] [email or web address] documented as of this encounter Procedures Procedure [...] It is not the complete legal health record.[facility]
--- OUTSIDE RECORDS SUMMARY | 2022-05-22 | XMS_ITS | Encounter Summary ---
Author Organization [facility] Address [address] [facility] [address] [place] [phone] Phone Care Team Providers Care Automobile Mechanic Assistant Name Role Phone Unavailable Primary Care Provider Unavailabl e Encounter Details Date Type Department Care Team (Late st Contact Info) Description 05/22/2022 Hospital Encounter [facility] [address] [place] [address] Amador Osullivan MD [address] [place] [phone] [email or web address] Social History Tobacco Use Types [...] 1:00 PM EST Telemedicine [facility] Main [place] [address] [facility] [address] [place] [address] Amador Osullivan MD [address] [place] [phone] [email or web address] documented as of this encounter Procedures [...] It is not the complete legal health record.[facility]
--- OUTSIDE RECORDS SUMMARY | 2024-06-03 | XMS_ITS | Encounter Summary ---
Author Organization [facility] Address [address] [place] [phone] Phone Care Team Providers Care Prop And Scenery Maker Name Role Phone Unavailable Primary Care Provider Unavailabl e Encounter Details Date Type Department Care Team (Late st Contact Info) Description 06/03/2024 Hospital Encounter [facility] [address] [place] [phone] Amador Osullivan MD [address] [place] [phone] [email or web address] Social History Tobacco Use Types Packs/Day [...] 1:00 PM EST Telemedicine [facility] [place] [address] [facility] [address] [place] [address] Amador Osullivan MD [address] [place] [phone] [email or web address] documented as of this encounter Procedures Procedure Name Priority Date/Time Associated Diagnosis Comments MRI BRAIN OUTSIDE (NO INTERPRETATION) Routine 06/03/2024 12:00 AM EDT documented in this encounter Results * MRI Brain Outside (No Interpretation) (06/03/2024 12:00 AM EDT) Narrative [facility] - 11/11/2024 2:12 PM EDT This study is for PACS storage only and not for interpretation. us Amador Osullivan MD IMG OUTSIDE IMAGING W/OUT IN TERPRETATION Final Result [facility] documented in this encounter Visit Diagnoses Not on filedocumented in this encounter Additional Source Comments The information contained in this document represents components of the legal health record. It is not the complete legal health record.[facility]
--- OUTSIDE RECORDS SUMMARY | 2024-06-03 00:05 | XMS_ITS | Encounter Summary ---
Author Organization [facility] Address [address] [place] [phone] Phone Care Team Providers Care Laundry Operator Name Role Phone Unavailable Primary Care Provider Unavailabl e Encounter Details Date Type Department Care Team (Late st Contact Info) Description 06/03/2024 12:05 AM EDT Hospital Encounter [facility] [address] [place] [phone] Amador Osullivan MD [address] [place], [place] [phone] [email or web address] Social History Tobacco Use Types Packs/Day Years [...] 1:00 PM EST Telemedicine [facility] [place] [address] [address] Amador Osullivan MD [address] [place] [phone] [email or web address] documented as of this encounter Procedures Procedure Name Priority Date/Time Associated Diagnosis Comments MRI BRAIN OUTSIDE (NO INTERPRETATION) Routine 06/03/2024 12:05 AM EDT documented in this encounter Results * MRI Brain Outside (No Interpretation) (06/03/2024 12:05 AM EDT) Narrative [facility] - [...] It is not the complete legal health record.[facility]
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
[2025-04-23 08:58] VITALS: BP 134/85; PULSE 107; O2SAT 99; BMI 32.7
--- OUTSIDE RECORDS SUMMARY | 2025-04-23 09:26 | XMS_ITS | Clinical Summary ---
Author Organization [facility] Address [address] [facility] [address] [place] [phone] Phone Care Team Providers Care Vamp Seamer Name Role Phone Tian Auguste MD Primary Care Provider [phone] Allergies Active Allergy Reactions Criticality Noted Date Comments Sulfa (Sulfonamide Antibiotics) GI Upset,Hives,Nausea and/or Vomiting,Palpitations, Rash Low 11/11/2024 Other Reaction(s): Hives/HTN Medications GLORIA ALLERGY 180 mg tablet Active dilTIAZem 180 mg 24hr Active CHOLECALCIFEROL 25 mcg (1,000 unit) tablet Take 1 tablet by mouth every morning. 10/23/2024 Active riboflavin, vitamin B2, (VITAMIN B-2) 100 mg Tab Take by mouth. 08/29/2023 Active norethindrone (AYGESTIN) 5 mg tablet Take 5 mg by mouth daily. Active albuterol sulfate (PROAIR RESPICLICK) 90 mcg/actuation AePB Inhale into the lungs. 11/06/2023 Active LUPRON DEPOT, 3 MONTH, 11.25 mg IM injection syringe Inject 11.25 mg into the muscle. 03/19/2024 Active TALTZ AUTOINJECTOR, 2 PACK, 80 mg/mL subcutaneous auto-injector Active RABEprazole (ACIPHEX) 20 mg tablet Take 20 mg by mouth 2 (two) times a day. Active Encounters Date Type Department Care Team Description 02/25/2025 3:15 PM EDT Telemedicine [facility] [address] [address] Amador Osullivan MD Vertigo (Primary Dx) from Last 3 Months Social History Tobacco Use Types Packs/Day Years [...] AM EST Sexual Orientation Not on file Plan of Treatment Upcoming Encounters Date Type Department Care Team ([facility] st Contact Info) Description 09/23/2025 1:00 PM EST Telemedicine [facility] [address] [address] Amador Osullivan MD [address] [place] [phone] [email or web address] Health Maintenance Due Date Last Done Comments Adult Td,Tdap Booster 1991 DEPRESSION SCREENING 2003 SMOKING Hx and SMOKELESS TOB ACCO SCREENING 2004 HEPATITIS C SCREENING 2009 HIV ONE-TIME SCREENING (18-6 5 YEARS) 2009 PAP SMEAR 2012 COVID-19 VACCINE (2023-2 5 season) 2024 HEPATITIS A VACCINES Aged Out No long er eligible based on patient's age to complete this topic HIB VACCINES Aged Out No longer eligi ble based on patient's age to complete this topic MENINGOCOCCAL VACCINES (ACWY) Aged Out No longer eligible based on patient's age to complete this topic MENINGOCOCCAL VACCINES (B) Aged Out N o longer eligible based on patient's age to complete this topic PNEUMOCOCCAL VACCINES (0-49 years) Aged Out No longer eligible based on patient's age to complete this topic Medical Devices Not on file Insurance BLUE [employer]OSS OUT OF STATE PPO BLUE [employer]OSS OUT OF STATE PPO BLUE [employer]OSS OUT OF STATE PPO BLUE [employer]OSS OUT OF STATE PPO BLUE [employer]OSS OUT OF STATE PPO BLUE CROSS OUT OF STATE PPO Care Teams Vamp Seamer Relationship Specialty Start Date End Date Tian Auguste MD [address] [place] [address] PCP - General Internal Medicine 07/01/24 Additional Source Comments The information contained in this document represents components of the legal health record. It is not the complete legal health record.[facility]
== END 2025-04-23 09:45 | disposition home or self-care (01) ==
LOC: HO.HGI 08:43
PROVIDERS: PCP Internal Medicine; Visit Provider Internal Medicine Gastroenterology
DX: K21.9 Gastro-esophageal reflux disease without esophagitis (principal); K58.0 Irritable bowel syndrome with diarrhea; R10.10 Upper abdominal pain, unspecified; R79.89 Other specified abnormal findings of blood chemistry; K59.09 Other constipation; R13.14 Dysphagia, pharyngoesophageal phase; D89.40 Mast cell activation, unspecified
CPT/HCPCS: 99214

== ENCOUNTER 2025-06-25 07:41 | Outpatient (AMB) | payer BC, SELFPAY ==
--- OUTSIDE RECORDS SUMMARY | 2022-05-16 | XMS_ITS | Encounter Summary ---
Author Organization [facility] Address [address] [facility] [address] [place] [phone] Phone Care Team Providers Care Supervisor Concrete Stone Finishing Name Role Phone Unavailable Primary Care Provider Unavailabl e Encounter Details Date Type Department Care Team (Late st Contact Info) Description 05/16/2022 Hospital Encounter [facility] [address] [place] [phone] Amador Osullivan MD [address] [place] [phone] [email or web address] Social History Tobacco Use Types Packs/Day Years Used Date Smoking Tobacco: Never Assessed Education Answer Date Recorded Are you interested in more education? Not on shashi e 07/03/2024 Are you concerned about learning? Not on file 07/03/2024 No 07/03/2024 No 07/03/2024 Digital Access Answer Date Recorded No 07/03/2024 No 07/03/2024 Reliable internet access at home? Not on file 07/03/2024 Device with a working camera? Not on file Comments Unknown Sex and Gender Information Value Date Recorded Sex Assigned at Female 07/03/2024 10:29 AM EST Legal Sex Female 11:36 AM EST Gender Identity Female 07/03/2024 10:29 AM EST Sexual Orientation Not on file documented as of this encounter Plan of Treatment Upcoming Encounters Date Type Department Care Team (Late st Contact Info) Description 09/23/2025 1:00 PM EST Telemedicine [facility] Main [place] [address] [facility] [address] [place] [address] Amador Osullivan MD [address] [place] [phone] [email or web address] documented as of this encounter Procedures Procedure Name Priority Date/Time Associated Diagnosis Comments MRI BRAIN OUTSIDE (NO INTERPRETATION) Routine 05/16/2022 12:00 AM EDT documented in this encounter Results * MRI Brain Outside (No Interpretation) (05/16/2022 12:00 AM EDT) Narrative [facility] INTER[facility] - 11/11/2024 1:50 PM EDT This study is for PACS storage only and not for interpretation. us Amador Osullivan MD IMG OUTSIDE IMAGING W/OUT IN TERPRETATION Final Result [facility] documented in this encounter Visit Diagnoses Not on filedocumented in this encounter Additional Source Comments The information contained in this document represents components of the legal health record. It is not the complete legal health record.[facility]
--- OUTSIDE RECORDS SUMMARY | 2022-05-22 | XMS_ITS | Encounter Summary ---
Author Organization [facility] Address [address] [facility] [address] [place] [phone] Phone Care Team Providers Care Miller Supervisor Name Role Phone Unavailable Primary Care Provider Unavailabl e Encounter Details Date Type Department Care Team (Late st Contact Info) Description 05/22/2022 Hospital Encounter [facility] [address] [place] [phone] Amador Osullivan MD [address] [place] [phone] [email or web address] Social History Tobacco Use Types [...] 1:00 PM EST Telemedicine [facility] Main [place] [address] [facility] [address] [place] [address] Amador Osullivan MD [address] [place] [phone] [email or web address] documented as of this encounter Procedures Procedure Name Priority Date/Time Associated Diagnosis Comments CT HEAD OUTSIDE (NO INTERPRETATION) Routine 05/22/2022 12:00 AM EDT documented in this encounter Results * CT Head Outside (No Interpretation) (05/22/2022 12:00 AM EDT) Narrative [facility] [...] It is not the complete legal health record.[facility]
--- OUTSIDE RECORDS SUMMARY | 2024-06-03 | XMS_ITS | Encounter Summary ---
Author Organization [facility] Address [address] [facility] [address] [place] [phone] Phone Care Team Providers Care Office 365 Consultant Name Role Phone Unavailable Primary Care Provider Unavailabl e Encounter Details Date Type Department Care Team (Late st Contact Info) Description 06/03/2024 Hospital Encounter [facility] [address] [place] [phone] Amador Osullivan MD [address] [place] [phone] [email or web address] Social History Tobacco Use [...] 1:00 PM EST Telemedicine [facility] [place] [address] [facility] [address]nd [place] [address] Amador Osullivan MD [address] [place] [phone] [email or web address] documented as of this encounter Procedures [...] It is not the complete legal health record.[facility]
--- OUTSIDE RECORDS SUMMARY | 2024-06-03 00:05 | XMS_ITS | Encounter Summary ---
Author Organization [facility] Address [address] [facility] [address] [place] [phone] Phone Care Team Providers Care Maintainer Central Office Name Role Phone Unavailable Primary Care Provider Unavailabl e Encounter Details Date Type Department Care Team (Late st Contact Info) Description 06/03/2024 12:05 AM EDT Hospital Encounter [facility] [address] [place] [phone] Amador Osullivan MD [address] [place], [place] [phone] [email or web address] Social History Tobacco Use Types Packs/Day [...] 1:00 PM EST Telemedicine [facility] [place] [address] [address] Amador Osullivan MD [address] [place] [phone] [email or web address] documented as of this encounter Procedures Procedure [...] It is not the complete legal health record.[facility]
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
[2025-06-25 07:44] VITALS: BP 141/93; PULSE 97; BMI 32.5
--- OUTSIDE RECORDS SUMMARY | 2025-06-25 07:45 | XMS_ITS | Clinical Summary ---
Author Organization [facility] Address [address] [place] [phone] Phone Care Team Providers Care Automotive Sales Professional Name Role Phone Tian Auguste MD Primary Care Provider [phone] Allergies Active Allergy Reactions Criticality Noted Date [...] mouth 2 (two) times a day. Active Social History Tobacco Use Types Packs/Day Years [...] 09/23/2025 1:00 PM EST Telemedicine [facility] [address] [place] [address] Amador Osullivan MD [address] [place] [phone] [email or web address] Health Maintenance Due Date Last Done Comments Adult Td,Tdap Booster 1991 DEPRESSION SCREENING 2003 SMOKING Hx and SMOKELESS TOB ACCO SCREENING 2004 HEPATITIS C SCREENING 2009 HIV ONE-TIME SCREENING (18-6 5 YEARS) 2009 PAP SMEAR 2012 INFLUENZA VACCINE (#1) 2025 COVID-19 VACCINE ( - 2024-2 6 season) 2025 HEPATITIS A VACCINES Aged Out No long [...] CROSS OUT OF STATE PPO Care Teams Automotive Sales Professional Relationship Specialty Start Date End Date Tain Auguste MD [address] [place] [phone] PCP - General Internal Medicine 07/01/24 Additional Source Comments The information contained in this document represents components of the legal health record. It is not the complete legal health record[facility]
== END 2025-06-25 08:17 | disposition home or self-care (01) ==
LOC: HO.HGI 07:42
PROVIDERS: PCP Internal Medicine; Visit Provider Internal Medicine Gastroenterology
DX: K21.9 Gastro-esophageal reflux disease without esophagitis (principal); K27.9 Peptic ulcer, site unspecified, unspecified as acute or chronic, without hemorrhage or perforation; B96.81 Helicobacter pylori [H. pylori] as the cause of diseases classified elsewhere; R13.14 Dysphagia, pharyngoesophageal phase; R79.89 Other specified abnormal findings of blood chemistry; K58.0 Irritable bowel syndrome with diarrhea; K59.09 Other constipation; R10.10 Upper abdominal pain, unspecified; K29.80 Duodenitis without bleeding; D89.40 Mast cell activation, unspecified; R14.0 Abdominal distension (gaseous)
CPT/HCPCS: 99214